=== PATIENT | male | born 1945 | race African-American/Black ===

== ENCOUNTER 2019-03-24 12:20 | Inpatient (IN) ==
[2019-03-24] MEDS ORDERED: SODIUM CHLORIDE 0.9% 1,000 ML IV STA ×2 (12:43→14:21)
[2019-03-24 13:50] LABS: Basophils # 0.1 10*3/uL (0.0-0.2); Basophils % 0.3 % (0.0-0.8); Hematocrit 36.5 VOL% (42.0-52.0); Immature Granulocytes % 1.3 %; Immature Granulocytes Absolute 0.26 #; Lymphocytes # 0.5 10*3/uL (1.4-4.0); Lymphocytes % 2.7 % (21.2-54.2); Mean Corpuscular HGB Conc 32.9 GM/DL (32-36); Mean Corpuscular Volume 94.1 FL (87-102); Mean Platelet Volume 9.8 FL (9.6-12.0); Monocytes % 3.7 % (1.7-12.7); Platelet Count 247 T/CUMM (130-400); Red Blood Count 3.88 MC/CUMM (3.8-5.5); Red Cell Distribution Width 14.6 % (9.3-17.3); White Blood Count 20.1 T/CUMM (4-12)
[2019-03-24 13:54] LABS: ABG Base Excess -11.4 MMOL/L (-2.5-2.5); ABG HCO3 12.1 MMOL/L (20-26); ABG Oxygen Saturation 97.1 % (95-100); ABG PCO2 22.3 MM HG (35-48); ABG PH 7.354 (7.35-7.45); ABG PO2 103.3 MM HG (80-95); ABG TCO2 12.8 MMOL/L (23-27); Allen Test Positive
[2019-03-24 13:59] LABS: Apearance,Urine CLEAR (Clear); Bacteria,Urine Occasional /HPF (Few); Bilirubin,Urine Negative (Negative); Blood, Urine Small mg/dL (Negative); Glucose,Urine (UA) >=500 mg/dL (Negative); Hyaline Casts,Urine 7 /LPF (0-3); Ketones,Urine 20 mg/dL (Negative); Mucus,Urine Occasional /LPF (Occasional); Nitrite,Urine Negative (Negative); Protein,Urine Negative; RBC,Urine 1 /HPF (0-4); Urine Color Yellow (Yellow); Urine Specific Gravity 1.015 (1.001-1.035); Urine Urobilinogen < 2.0 EU/DL (0.2-1.0); WBC,Urine 2 /HPF (0-6)
[2019-03-24] MEDS ORDERED: INSULIN REGULAR 100 UNIT/ML IV STA (14:21)
[2019-03-24 14:26] LABS: Albumin 2.4 G/DL (3.4-5.0); Bilirubin,Total 1.5 MG/DL (0.2-1.0); Calcium 8.7 MG/DL (8.5-10.1); Osmolality,Calculated 303.4 MOS/KG (273-304)
[2019-03-24] MEDS ORDERED: ACETAMINOPHEN 325 MG TABLET PO PRN (14:33)
[2019-03-24] MEDS ORDERED: traZODone 50 MG TABLET PO PRN (14:33)
[2019-03-24] MEDS ORDERED: ZALEPLON 5 MG CAPSULE PO PRN (14:33)
[2019-03-24] MEDS ORDERED: PROMETHAZINE 25 MG/1 ML VIAL IM PRN (14:33)
[2019-03-24] MEDS ORDERED: DEXTROSE 50% 25 GM/50 ML VIAL IV PRN (14:33)
[2019-03-24] MEDS ORDERED: ONDANSETRON 4 MG/2 ML VIAL IV PRN (14:33)
[2019-03-24] MEDS ORDERED: GLUCAGON 1 MG VIAL IM PRN (14:33)
[2019-03-24] MEDS ORDERED: SODIUM BICARB INJ 100 MEQ in STERILE WATER INJ 400 ML IV PRN (14:38)
[2019-03-24] MEDS ORDERED: MAGNESIUM SULF RIDER 2 GM in PREMIX 1 EACH IV PRN (14:38)
[2019-03-24] MEDS ORDERED: POTASSIUM CHLORIDE RIDER 10 MEQ in PREMIX 1 EACH IV PRN (14:38)
[2019-03-24] MEDS ORDERED: MAGNESIUM SULF RIDER 4 GM in PREMIX 1 EACH IV PRN (14:38)
[2019-03-24] MEDS ORDERED: SODIUM PHOSPHATE IV PRN (14:38)
[2019-03-24] MEDS ORDERED: SODIUM CHLORIDE 0.9% IV PRN (14:38)
[2019-03-24 14:56] LABS: Band Neutrophils 3 % (0-10); Lymphocytes 1 % (20-55); Segmented Neutrophils 94 % (50-85); Total Cells Counted 100
[2019-03-24 15:00] LABS: Hypochromasia 1+; Microcytosis 2+
[2019-03-24] MEDS ORDERED: SODIUM CHLORIDE 0.9% 1,000 ML IV SCH ×2 (15:00→19:39)
[2019-03-24 15:01] LABS: Burr Cells Few; Platelet Estimate Normal; Polychromasia Slight; Schistocytes Slight; Spherocytes 2+
[2019-03-24] MEDS: INSULIN REGULAR DRIP 100 ML IV SCH (16:25)
[2019-03-24] MEDS: ENOXAPARIN 40 MG/0.4 ML SYRINGE SUBCUT SCH (16:51)
[2019-03-24 18:28] LABS: Calcium 8.6 MG/DL (8.5-10.1); Osmolality,Calculated 302.9 MOS/KG (273-304)
[2019-03-24] MEDS: cefTRIAXone 1,000 MG in SYRINGE 1 EACH IV SCH (20:04)
[2019-03-24] MEDS: PANTOPRAZOLE 40 MG TABLET PO SCH (20:08)
[2019-03-24] MEDS ORDERED: INSULIN GLARGINE 100 UNIT/ML SUBCUT SCH (21:00)
[2019-03-24] MEDS ORDERED: VANCOMYCIN INJ 1,000 MG in SODIUM CHLORIDE 0.9% 250 ML IV ONE (22:14)
[2019-03-24] MEDS: ASPIRIN EC 81 MG TABLET PO SCH (22:55)
[2019-03-24] MEDS: SODIUM CHLORIDE 0.9% 1,000 ML IV SCH (22:56)
[2019-03-24 23:31] LABS: Calcium 8.3 MG/DL (8.5-10.1); Osmolality,Calculated 295.7 MOS/KG (273-304)
[2019-03-25] MEDS: CARVEDILOL 6.25 MG TABLET PO SCH ×3 (00:10→17:39)
[2019-03-25] MEDS: MAGNESIUM OXIDE 400 MG TABLET PO SCH ×3 (00:10→21:34)
[2019-03-25 00:40] LABS: Apearance,Urine CLEAR (Clear); Bacteria,Urine Occasional /HPF (Few); Bilirubin,Urine Negative (Negative); Blood, Urine Small mg/dL (Negative); Glucose,Urine (UA) >=500 mg/dL (Negative); Hyaline Casts,Urine 8 /LPF (0-3); Ketones,Urine 20 mg/dL (Negative); Mucus,Urine Occasional /LPF (Occasional); Nitrite,Urine Negative (Negative); Protein,Urine Negative; RBC,Urine 1 /HPF (0-4); Squamous Epithelial Cell,Urine Occasional /HPF (0-10); Urine Color Yellow (Yellow); Urine Specific Gravity 1.014 (1.001-1.035); Urine Urobilinogen < 2.0 EU/DL (0.2-1.0); WBC,Urine <1 /HPF (0-6)
[2019-03-25] MEDS: SODIUM CHLORIDE 0.9% 1,000 ML IV SCH ×4 (01:10→23:18)
[2019-03-25 02:03] LABS: Basophils % 0.2 % (0.0-0.8); Hematocrit 34.1 VOL% (42.0-52.0); Hemoglobin 11.7 GM/DL (14.0-18.0); Immature Granulocytes % 1.2 %; Immature Granulocytes Absolute 0.22 #; Lymphocytes # 0.6 10*3/uL (1.4-4.0); Mean Corpuscular HGB Conc 34.3 GM/DL (32-36); Mean Corpuscular Volume 90.9 FL (87-102); Mean Platelet Volume 9.6 FL (9.6-12.0); Monocytes % 4.7 % (1.7-12.7); Neutrophils % 90.9 % (38.7-73.9); Platelet Count 253 T/CUMM (130-400); Red Blood Count 3.75 MC/CUMM (3.8-5.5); Red Cell Distribution Width 14.1 % (9.3-17.3); White Blood Count 18.6 T/CUMM (4-12)
[2019-03-25 02:50] LABS: ABG Base Excess -0.1 MMOL/L (-2.5-2.5); ABG HCO3 24.3 MMOL/L (20-26); ABG Oxygen Saturation 95.2 % (95-100); ABG PCO2 31.2 MM HG (35-48); ABG PO2 74.6 MM HG (80-95); ABG TCO2 19.8 MMOL/L (23-27); Allen Test Positive; Pt O2 Delivery Device Other
[2019-03-25 02:53] LABS: Calcium 8.5 MG/DL (8.5-10.1); Osmolality,Calculated 296.1 MOS/KG (273-304)
[2019-03-25 03:33] LABS: Eosinophils 1 % (0-10); Lymphocytes 3 % (20-55); Platelet Estimate Adequate; Segmented Neutrophils 91 % (50-85); Total Cells Counted 100
[2019-03-25 04:57] LABS: Calcium 8.2 MG/DL (8.5-10.1); Osmolality,Calculated 294.2 MOS/KG (273-304); Risk Ratio 4.45; Thyroid Stimulating Hormone 0.776 uIU/ml (0.358-3.74); VLDL CHOLESTEROL 28.2 MG/DL
[2019-03-25] MEDS: INSULIN REGULAR DRIP 100 ML IV SCH (06:00)
[2019-03-25 07:07] LABS: Calcium 8.5 MG/DL (8.5-10.1); Osmolality,Calculated 296.7 MOS/KG (273-304)
[2019-03-25] MEDS ORDERED: POTASSIUM CHLORIDE 20 MEQ TABLET PO ONE (07:31)
[2019-03-25] MEDS ORDERED: SODIUM CHLORIDE 0.45% 1,000 ML IV SCH (07:39)
[2019-03-25] MEDS: INSULIN REGULAR 100 UNIT/ML SUBCUT SCH ×4 (09:44→21:30)
[2019-03-25] MEDS: sitaGLIPtin 25 MG TABLET PO SCH (10:04)
[2019-03-25] MEDS: ASPIRIN EC 81 MG TABLET PO SCH (10:06)
[2019-03-25] MEDS: PANTOPRAZOLE 40 MG TABLET PO SCH (10:06)
[2019-03-25 11:23] LABS: Calcium 8.4 MG/DL (8.5-10.1)
[2019-03-25] MEDS ORDERED: TUBERCULIN SKIN TEST 0.1 ML SYRINGE INTRADERM ONE (12:00)
[2019-03-25] MEDS: INSULIN GLARGINE 100 UNIT/ML SUBCUT SCH ×2 (12:22→21:31)
[2019-03-25] MEDS: INSULIN LISPRO 100 UNIT/ML SUBCUT SCH ×3 (12:22→21:31)
[2019-03-25] MEDS: FAMOTIDINE 20 MG/2 ML VIAL IV SCH (12:22)
[2019-03-25] MEDS: ENOXAPARIN 40 MG/0.4 ML SYRINGE SUBCUT SCH (17:39)
[2019-03-25] MEDS: cefTRIAXone 1,000 MG in SYRINGE 1 EACH IV SCH (17:40)
[2019-03-25] MEDS: ATORVASTATIN 10 MG TABLET PO SCH (21:35)
[2019-03-26] MEDS: FAMOTIDINE 20 MG/2 ML VIAL IV SCH ×3 (00:31→23:40)
[2019-03-26] MEDS: INSULIN REGULAR 100 UNIT/ML SUBCUT SCH ×6 (00:31→21:17)
[2019-03-26 05:19] LABS: Basophils % 0.1 % (0.0-0.8); Hematocrit 31.1 VOL% (42.0-52.0); Hemoglobin 10.6 GM/DL (14.0-18.0); Immature Granulocytes % 2.4 %; Immature Granulocytes Absolute 0.26 #; Lymphocytes # 0.6 10*3/uL (1.4-4.0); Lymphocytes % 5.6 % (21.2-54.2); Mean Corpuscular HGB Conc 34.1 GM/DL (32-36); Mean Corpuscular Volume 92.3 FL (87-102); Mean Platelet Volume 9.6 FL (9.6-12.0); NRBC # 0.02 10*3/uL; Neutrophils % 83.9 % (38.7-73.9); Platelet Count 276 T/CUMM (130-400); Red Blood Count 3.37 MC/CUMM (3.8-5.5); Red Cell Distribution Width 14.5 % (9.3-17.3); White Blood Count 10.9 T/CUMM (4-12)
[2019-03-26 05:41] LABS: Calcium 8.6 MG/DL (8.5-10.1); Osmolality,Calculated 295.1 MOS/KG (273-304)
[2019-03-26] MEDS: SODIUM CHLORIDE 0.9% 1,000 ML IV SCH ×2 (05:47→09:49)
[2019-03-26] MEDS: INSULIN GLARGINE 100 UNIT/ML SUBCUT SCH ×2 (08:06→21:17)
[2019-03-26] MEDS: INSULIN LISPRO 100 UNIT/ML SUBCUT SCH ×4 (08:07→21:17)
[2019-03-26] MEDS: ASPIRIN EC 81 MG TABLET PO SCH (08:10)
[2019-03-26] MEDS: CARVEDILOL 6.25 MG TABLET PO SCH ×2 (08:10→17:50)
[2019-03-26] MEDS: MAGNESIUM OXIDE 400 MG TABLET PO SCH ×2 (08:10→21:10)
[2019-03-26] MEDS: sitaGLIPtin 25 MG TABLET PO SCH (08:10)
[2019-03-26] MEDS: ENOXAPARIN 40 MG/0.4 ML SYRINGE SUBCUT SCH (14:44)
[2019-03-26] MEDS ORDERED: SKIN HEALING OINT (AQUAPHOR) 50 GM TUBE TOP PRN (15:09)
[2019-03-26] MEDS ORDERED: METOCLOPRAMIDE 10 MG/2 ML VIAL IV ONE (19:49)
[2019-03-26] MEDS: ATORVASTATIN 10 MG TABLET PO SCH (21:07)
[2019-03-27 05:58] LABS: Basophils % 0.1 % (0.0-0.8); Eosinophils % 0.1 % (0.00-10.9); Hematocrit 34.7 VOL% (42.0-52.0); Hemoglobin 11.3 GM/DL (14.0-18.0); Immature Granulocytes % 2.3 %; Immature Granulocytes Absolute 0.21 #; Lymphocytes % 10.5 % (21.2-54.2); Mean Corpuscular HGB Conc 32.6 GM/DL (32-36); Mean Corpuscular Volume 94.8 FL (87-102); Mean Platelet Volume 9.2 FL (9.6-12.0); Monocytes % 7.6 % (1.7-12.7); NRBC # 0.04 10*3/uL; Neutrophils % 79.4 % (38.7-73.9); Platelet Count 291 T/CUMM (130-400); Red Blood Count 3.66 MC/CUMM (3.8-5.5); Red Cell Distribution Width 14.9 % (9.3-17.3); White Blood Count 9.3 T/CUMM (4-12)
[2019-03-27 06:19] LABS: Calcium 8.6 MG/DL (8.5-10.1); Osmolality,Calculated 281.4 MOS/KG (273-304)
[2019-03-27] MEDS: MAGNESIUM OXIDE 400 MG TABLET PO SCH (08:35)
[2019-03-27] MEDS: ASPIRIN EC 81 MG TABLET PO SCH (08:35)
[2019-03-27] MEDS: CARVEDILOL 6.25 MG TABLET PO SCH (08:35)
[2019-03-27] MEDS: sitaGLIPtin 25 MG TABLET PO SCH (08:35)
[2019-03-27] MEDS: INSULIN LISPRO 100 UNIT/ML SUBCUT SCH ×3 (08:36→13:13)
[2019-03-27] MEDS ORDERED: INSULIN GLARGINE 100 UNIT/ML SUBCUT SCH (09:00)
[2019-03-27] MEDS ORDERED: AZITHROMYCIN 250 MG TABLET PO SCH (09:00)
[2019-03-27 11:10] VITALS: BP 91/52
[2019-03-27] MEDS: FAMOTIDINE 20 MG/2 ML VIAL IV SCH (13:13)
== END 2019-03-27 13:09 | DRG 637 ==
LOC: EDBD → EDUNIT# → N.ED 12:20 → N.EDINP 14:36 → N.CC 19:32 → N.3E 03-25 18:49
PROVIDERS: ADMIT Emergency Medicine; ATTEND Emergency Medicine

== ENCOUNTER 2021-02-15 09:42 | Inpatient (IN) ==
[2021-02-15 10:38] LABS: Albumin 2.9 G/DL (3.4-5.0); Bilirubin,Total 1.2 MG/DL (0.2-1.0); Calcium 8.7 MG/DL (8.5-10.1); Osmolality,Calculated 278.5 MOS/KG (273-304); Potassium 3.7 MMOL/L (3.5-5.1); Total Protein 7.1 G/DL (6.4-8.2)
[2021-02-15 10:57] LABS: Basophils % 0.3 % (0.0-0.8); Eosinophils % 0.3 % (0.00-10.9); Hematocrit 45.8 VOL% (42.0-52.0); Hemoglobin 15.1 GM/DL (14.0-18.0); Immature Granulocytes % 0.4 %; Immature Granulocytes Absolute 0.03 #; Lymphocytes # 0.7 10*3/uL (1.4-4.0); Lymphocytes % 10.2 % (21.2-54.2); Mean Corpuscular Volume 91.4 FL (87-102); Mean Platelet Volume 9.1 FL (9.6-12.0); Monocytes % 7.1 % (1.7-12.7); Neutrophils % 81.7 % (38.7-73.9); Platelet Count 196 T/CUMM (130-400); Red Blood Count 5.01 MC/CUMM (3.8-5.5); Red Cell Distribution Width 16.1 % (9.3-17.3); White Blood Count 7.2 T/CUMM (4-12)
[2021-02-15] MEDS ORDERED: hydrALAZINE 20 MG/1 ML VIAL IV STA (10:58)
[2021-02-15] MEDS ORDERED: MAGNESIUM SULF RIDER 2 GM in PREMIX 1 EACH IV STA (10:58)
[2021-02-15 11:05] LABS: Bilirubin,Urine Negative (Negative); Blood, Urine Small mg/dL (Negative); Glucose,Urine (UA) 50 mg/dL (Negative); Hyaline Casts,Urine 3 /LPF (0-3); Ketones,Urine Negative (Negative); Mucus,Urine Occasional /LPF (Occasional); Nitrite,Urine Negative (Negative); Protein,Urine >=500 MG/DL; RBC,Urine 8 /HPF (0-4); Squamous Epithelial Cell,Urine Occasional /HPF (0-10); Urine Appearance CLEAR (Clear); Urine Color Yellow (Yellow); Urine Specific Gravity 1.014 (1.001-1.035); Urine Urobilinogen < 2.0 EU/DL (0.2-1.0)
[2021-02-15] MEDS ORDERED: hydrALAZINE 20 MG/1 ML VIAL IV PRN (13:06)
[2021-02-15] MEDS ORDERED: ACETAMINOPHEN 325 MG TABLET PO PRN (13:06)
[2021-02-15] MEDS ORDERED: GLUCAGON 1 MG VIAL IM PRN (13:06)
[2021-02-15] MEDS ORDERED: ONDANSETRON 4 MG/2 ML VIAL IV PRN (13:06)
[2021-02-15] MEDS ORDERED: DEXTROSE 50% 25 GM/50 ML VIAL IV PRN (13:06)
[2021-02-15] MEDS ORDERED: DOCUSATE SODIUM 100 MG CAPSULE PO PRN (13:06)
[2021-02-15] MEDS: SODIUM CHLORIDE 0.9% 1,000 ML IV SCH ×2 (14:05→21:38)
[2021-02-15] MEDS: INSULIN REGULAR 100 UNIT/ML SUBCUT SCH ×2 (18:59→22:16)
[2021-02-15] MEDS ORDERED: INSULIN GLARGINE 100 UNIT/ML SUBCUT SCH (19:00)
[2021-02-15] MEDS ORDERED: ENOXAPARIN 40 MG/0.4 ML SYRINGE SUBCUT SCH (21:00)
[2021-02-15] MEDS: APIXABAN 5 MG TABLET PO SCH (21:31)
[2021-02-15] MEDS: MAGNESIUM OXIDE 400 MG TABLET PO SCH (21:32)
[2021-02-15] MEDS: carvediloL 6.25 MG TABLET PO SCH (21:32)
[2021-02-15] MEDS: ATORVASTATIN 10 MG TABLET PO SCH (21:33)
[2021-02-16 05:58] LABS: Basophils % 0.2 % (0.0-0.8); Eosinophils % 0.2 % (0.00-10.9); Hemoglobin 13.6 GM/DL (14.0-18.0); Immature Granulocytes % 0.3 %; Immature Granulocytes Absolute 0.02 #; Lymphocytes % 16.5 % (21.2-54.2); Mean Corpuscular HGB Conc 33.2 GM/DL (32-36); Mean Corpuscular Volume 92.8 FL (87-102); Mean Platelet Volume 9.9 FL (9.6-12.0); Monocytes % 9.3 % (1.7-12.7); Neutrophils % 73.5 % (38.7-73.9); Platelet Count 227 T/CUMM (130-400); Red Blood Count 4.42 MC/CUMM (3.8-5.5); Red Cell Distribution Width 16.4 % (9.3-17.3); White Blood Count 6.3 T/CUMM (4-12)
[2021-02-16] MEDS: SODIUM CHLORIDE 0.9% 1,000 ML IV SCH ×2 (06:12→18:34)
[2021-02-16 06:16] LABS: Calcium 8.3 MG/DL (8.5-10.1); Osmolality,Calculated 281.1 MOS/KG (273-304); Potassium 2.6 MMOL/L (3.5-5.1); Risk Ratio 2.67
[2021-02-16] MEDS ORDERED: POTASSIUM CHLORIDE 20 MEQ TABLET PO STA (08:08)
[2021-02-16] MEDS: INSULIN REGULAR 100 UNIT/ML SUBCUT SCH ×4 (08:46→23:16)
[2021-02-16] MEDS ORDERED: POTASSIUM CHLORIDE 8 MEQ CAPSULE PO SCH (09:00)
[2021-02-16] MEDS: MAGNESIUM OXIDE 400 MG TABLET PO SCH ×2 (09:25→22:18)
[2021-02-16] MEDS: ASPIRIN EC 81 MG TABLET PO SCH (09:25)
[2021-02-16] MEDS: APIXABAN 5 MG TABLET PO SCH ×2 (09:26→20:01)
[2021-02-16] MEDS: carvediloL 6.25 MG TABLET PO SCH ×2 (09:26→20:01)
[2021-02-16] MEDS: sitaGLIPtin 100 MG TABLET PO SCH (09:26)
[2021-02-16] MEDS: DOXAZOSIN 1 MG TABLET PO SCH (09:26)
[2021-02-16] MEDS: PANTOPRAZOLE 40 MG TABLET PO SCH (09:28)
[2021-02-16] MEDS ORDERED: POTASSIUM CHLORIDE 20 MEQ TABLET PO ONE (10:00)
[2021-02-16] MEDS ORDERED: INSULIN GLARGINE 100 UNIT/ML SUBCUT SCH (19:00)
[2021-02-16] MEDS: ATORVASTATIN 10 MG TABLET PO SCH (20:02)
[2021-02-16] MEDS: INSULIN GLARGINE 100 UNIT/ML SUBCUT SCH (23:18)
[2021-02-17] MEDS: INSULIN REGULAR 100 UNIT/ML SUBCUT SCH ×4 (08:17→21:27)
[2021-02-17 08:21] LABS: Basophils % 0.4 % (0.0-0.8); Eosinophils % 0.6 % (0.00-10.9); Hemoglobin 12.7 GM/DL (14.0-18.0); Immature Granulocytes % 0.6 %; Immature Granulocytes Absolute 0.03 #; Lymphocytes # 0.9 10*3/uL (1.4-4.0); Lymphocytes % 17.1 % (21.2-54.2); Mean Corpuscular HGB Conc 32.6 GM/DL (32-36); Mean Corpuscular Volume 92.6 FL (87-102); Mean Platelet Volume 9.6 FL (9.6-12.0); Monocytes % 8.8 % (1.7-12.7); Neutrophils % 72.5 % (38.7-73.9); Platelet Count 203 T/CUMM (130-400); Red Blood Count 4.21 MC/CUMM (3.8-5.5); Red Cell Distribution Width 16.5 % (9.3-17.3); White Blood Count 5.2 T/CUMM (4-12)
[2021-02-17 08:57] LABS: Calcium 8.1 MG/DL (8.5-10.1); Osmolality,Calculated 282.3 MOS/KG (273-304); Potassium 3.3 MMOL/L (3.5-5.1)
[2021-02-17] MEDS: carvediloL 6.25 MG TABLET PO SCH ×2 (10:23→20:46)
[2021-02-17] MEDS: PANTOPRAZOLE 40 MG TABLET PO SCH (10:23)
[2021-02-17] MEDS: ASPIRIN EC 81 MG TABLET PO SCH (10:23)
[2021-02-17] MEDS: sitaGLIPtin 100 MG TABLET PO SCH (10:24)
[2021-02-17] MEDS: MAGNESIUM OXIDE 400 MG TABLET PO SCH ×2 (10:24→20:46)
[2021-02-17] MEDS: DOXAZOSIN 1 MG TABLET PO SCH (10:25)
[2021-02-17] MEDS: APIXABAN 5 MG TABLET PO SCH ×2 (10:25→20:46)
[2021-02-17] MEDS: SODIUM CHLORIDE 0.9% 1,000 ML IV SCH (15:47)
[2021-02-17] MEDS ORDERED: TUBERCULIN SKIN TEST 0.1 ML SYRINGE INTRADERM ONE (20:00)
[2021-02-17] MEDS: ATORVASTATIN 10 MG TABLET PO SCH (20:46)
[2021-02-17] MEDS: INSULIN GLARGINE 100 UNIT/ML SUBCUT SCH (21:27)
[2021-02-18 05:06] LABS: Basophils % 0.2 % (0.0-0.8); Eosinophils # 0.1 10*3/uL (0.0-0.87); Eosinophils % 1.5 % (0.00-10.9); Hemoglobin 12.5 GM/DL (14.0-18.0); Immature Granulocytes % 0.2 %; Immature Granulocytes Absolute 0.01 #; Lymphocytes % 19.3 % (21.2-54.2); Mean Corpuscular HGB Conc 33.8 GM/DL (32-36); Mean Corpuscular Volume 90.7 FL (87-102); Mean Platelet Volume 9.8 FL (9.6-12.0); Monocytes % 9.1 % (1.7-12.7); Neutrophils % 69.7 % (38.7-73.9); Platelet Count 162 T/CUMM (130-400); Red Blood Count 4.08 MC/CUMM (3.8-5.5); Red Cell Distribution Width 16.4 % (9.3-17.3); White Blood Count 5.2 T/CUMM (4-12)
[2021-02-18 05:25] LABS: Calcium 7.7 MG/DL (8.5-10.1); Osmolality,Calculated 279.5 MOS/KG (273-304); Potassium 3.3 MMOL/L (3.5-5.1)
[2021-02-18] MEDS ORDERED: POTASSIUM CHLORIDE 20 MEQ TABLET PO ONE (07:35)
[2021-02-18] MEDS: INSULIN REGULAR 100 UNIT/ML SUBCUT SCH ×4 (08:37→20:50)
[2021-02-18] MEDS: ASPIRIN EC 81 MG TABLET PO SCH (09:45)
[2021-02-18] MEDS: DOXAZOSIN 1 MG TABLET PO SCH (09:45)
[2021-02-18] MEDS: carvediloL 6.25 MG TABLET PO SCH ×2 (09:45→20:50)
[2021-02-18] MEDS: APIXABAN 5 MG TABLET PO SCH ×2 (09:45→20:49)
[2021-02-18] MEDS: MAGNESIUM OXIDE 400 MG TABLET PO SCH ×2 (09:45→20:50)
[2021-02-18] MEDS: sitaGLIPtin 100 MG TABLET PO SCH (09:45)
[2021-02-18] MEDS: PANTOPRAZOLE 40 MG TABLET PO SCH (09:50)
[2021-02-18] MEDS: SODIUM CHLORIDE 0.9% 1,000 ML IV SCH (15:28)
[2021-02-18] MEDS: INSULIN GLARGINE 100 UNIT/ML SUBCUT SCH (19:35)
[2021-02-18] MEDS: ATORVASTATIN 10 MG TABLET PO SCH (20:50)
[2021-02-19 08:18] LABS: Basophils % 0.2 % (0.0-0.8); Eosinophils # 0.1 10*3/uL (0.0-0.87); Eosinophils % 1.2 % (0.00-10.9); Hematocrit 41.5 VOL% (42.0-52.0); Hemoglobin 13.7 GM/DL (14.0-18.0); Immature Granulocytes % 0.4 %; Immature Granulocytes Absolute 0.02 #; Lymphocytes % 18.2 % (21.2-54.2); Mean Corpuscular Volume 92.2 FL (87-102); Monocytes % 8.8 % (1.7-12.7); Neutrophils % 71.2 % (38.7-73.9); Platelet Count 210 T/CUMM (130-400); Red Cell Distribution Width 16.3 % (9.3-17.3); White Blood Count 5.7 T/CUMM (4-12)
[2021-02-19 08:29] LABS: Osmolality,Calculated 281.3 MOS/KG (273-304); Potassium 3.7 MMOL/L (3.5-5.1)
[2021-02-19] MEDS: INSULIN REGULAR 100 UNIT/ML SUBCUT SCH ×4 (08:43→21:03)
[2021-02-19] MEDS: APIXABAN 5 MG TABLET PO SCH ×2 (08:45→20:17)
[2021-02-19] MEDS: sitaGLIPtin 100 MG TABLET PO SCH (08:45)
[2021-02-19] MEDS: PANTOPRAZOLE 40 MG TABLET PO SCH (08:46)
[2021-02-19] MEDS: carvediloL 6.25 MG TABLET PO SCH ×2 (08:46→20:17)
[2021-02-19] MEDS: ASPIRIN EC 81 MG TABLET PO SCH (08:46)
[2021-02-19] MEDS: DOXAZOSIN 1 MG TABLET PO SCH (08:46)
[2021-02-19] MEDS: MAGNESIUM OXIDE 400 MG TABLET PO SCH ×2 (08:46→20:17)
[2021-02-19] MEDS: SODIUM CHLORIDE 0.9% 1,000 ML IV SCH (13:34)
[2021-02-19] MEDS: INSULIN GLARGINE 100 UNIT/ML SUBCUT SCH (18:40)
[2021-02-19] MEDS: ATORVASTATIN 10 MG TABLET PO SCH (20:17)
[2021-02-20 06:23] LABS: Basophils % 0.2 % (0.0-0.8); Eosinophils # 0.1 10*3/uL (0.0-0.87); Eosinophils % 1.3 % (0.00-10.9); Hematocrit 38.2 VOL% (42.0-52.0); Hemoglobin 12.7 GM/DL (14.0-18.0); Immature Granulocytes % 0.2 %; Immature Granulocytes Absolute 0.01 #; Lymphocytes # 0.8 10*3/uL (1.4-4.0); Lymphocytes % 16.6 % (21.2-54.2); Mean Corpuscular HGB Conc 33.2 GM/DL (32-36); Mean Corpuscular Volume 91.4 FL (87-102); Mean Platelet Volume 9.1 FL (9.6-12.0); Monocytes % 9.2 % (1.7-12.7); Neutrophils % 72.5 % (38.7-73.9); Platelet Count 175 T/CUMM (130-400); Red Blood Count 4.18 MC/CUMM (3.8-5.5); Red Cell Distribution Width 16.4 % (9.3-17.3); White Blood Count 4.6 T/CUMM (4-12)
[2021-02-20 06:46] LABS: Calcium 7.7 MG/DL (8.5-10.1)
[2021-02-20 06:51] LABS: Osmolality,Calculated 276.7 MOS/KG (273-304); Potassium 3.6 MMOL/L (3.5-5.1)
[2021-02-20] MEDS: INSULIN REGULAR 100 UNIT/ML SUBCUT SCH ×2 (07:46→12:59)
[2021-02-20] MEDS: sitaGLIPtin 100 MG TABLET PO SCH (09:33)
[2021-02-20] MEDS: MAGNESIUM OXIDE 400 MG TABLET PO SCH (09:33)
[2021-02-20] MEDS: carvediloL 6.25 MG TABLET PO SCH (09:34)
[2021-02-20] MEDS: APIXABAN 5 MG TABLET PO SCH (09:34)
[2021-02-20] MEDS: PANTOPRAZOLE 40 MG TABLET PO SCH (09:34)
[2021-02-20] MEDS: DOXAZOSIN 1 MG TABLET PO SCH (09:34)
[2021-02-20] MEDS: ASPIRIN EC 81 MG TABLET PO SCH (09:34)
[2021-02-20 11:30] VITALS: BP 144/72
== END 2021-02-20 13:30 | DRG 301 ==
LOC: EDUNIT# → EDBD → N.EDINP 09:42 → N.ED 09:42 → SUATTDRO 13:06 → N.4E 13:38 → SUATTDRO 02-16 17:54
PROVIDERS: ADMIT Internal Medicine; ATTEND Internal Medicine Geriatric Medicine

== ENCOUNTER 2021-09-06 14:24 | Inpatient (IN) ==
[2021-09-06 15:13] LABS: Basophils % 0.3 % (0.0-0.8); Hematocrit 34.8 VOL% (42.0-52.0); Hemoglobin 11.6 GM/DL (14.0-18.0); Immature Granulocytes % 0.5 %; Immature Granulocytes Absolute 0.02 #; Lymphocytes # 0.4 10*3/uL (1.4-4.0); Lymphocytes % 11.1 % (21.2-54.2); Mean Corpuscular HGB Conc 33.3 GM/DL (32-36); Mean Corpuscular Volume 89.2 FL (87-102); Mean Platelet Volume 12.3 FL (9.6-12.0); Monocytes % 4.2 % (1.7-12.7); NRBC # 0.06 10*3/uL; Neutrophils % 83.9 % (38.7-73.9); Platelet Count 105 T/CUMM (130-400); White Blood Count 3.8 T/CUMM (4-12)
[2021-09-06 15:19] LABS: INR 1.4; PT Patient Result 15.6 SECS (10.5-12.0)
[2021-09-06] MEDS ORDERED: FUROSEMIDE 40 MG/4 ML VIAL IV STA (15:40)
[2021-09-06] MEDS ORDERED: ONDANSETRON 4 MG/2 ML VIAL IV PRN (15:53)
[2021-09-06] MEDS ORDERED: ALBUTEROL 2.5 MG/3 ML NEB RESP TX PRN (15:53)
[2021-09-06] MEDS ORDERED: LIDOCAINE 1% 20 ML VIAL ONE (15:57)
[2021-09-06] MEDS ORDERED: HEPARIN/NACL 0.9% 2 UNITS/ML 1,000 UNIT/500 ML BAG IV ONE (15:57)
[2021-09-06] MEDS ORDERED: HYDROmorphone 2 MG/1 ML VIAL ONE (16:00)
[2021-09-06] MEDS ORDERED: MIDAZOLAM 2 MG/2 ML VIAL ONE (16:00)
[2021-09-06 16:03] LABS: Albumin 2.8 G/DL (3.4-5.0); Bilirubin,Total 0.5 MG/DL (0.20-1.00); Calcium 8.5 MG/DL (8.5-10.1); Osmolality,Calculated 304.4 MOS/KG (273-304); Thyroid Stimulating Hormone 6.12 uIU/ml (0.358-3.74); Total Protein 6.7 G/DL (6.4-8.2)
[2021-09-06 16:09] LABS: Potassium 6.4 MMOL/L (3.5-5.1)
[2021-09-06 16:11] LABS: Anisocytosis 1+; Burr Cells Few; Macrocytosis Slight; Platelet Estimate Adequate
[2021-09-06] MEDS ORDERED: diphenhydrAMINE 50 MG/1 ML VIAL ONE (16:11)
[2021-09-06] MEDS ORDERED: SODIUM POLYSTYRENE SULFATE 15 GM/60 ML BOTTLE PO STA (16:13)
[2021-09-06] MEDS ORDERED: AZITHROMYCIN INJ 500 MG in SODIUM CHLORIDE 0.9% 250 ML IV SCH (17:00)
[2021-09-06] MEDS ORDERED: INFLUENZA VIRUS VACCINE 0.5 ML SYRINGE IM ONE (18:04)
[2021-09-06] MEDS ORDERED: EPINEPHrine 1 MG/10 ML SYRINGE ONE (18:46)
[2021-09-06] MEDS ORDERED: CALCIUM CHLORIDE 1,000 MG/10 ML SYRINGE IV ONE ×2 (18:46)
[2021-09-06] MEDS: SODIUM CHLORIDE 0.9% 1,000 ML IV SCH ×2 (19:13→21:32)
[2021-09-06] MEDS ORDERED: SODIUM CHLORIDE 0.9% 1,000 ML IV ONE (19:14)
[2021-09-06 19:17] LABS: Basophils % 0.2 % (0.0-0.8); Hematocrit 37.5 VOL% (42.0-52.0); Hemoglobin 12.3 GM/DL (14.0-18.0); Immature Granulocytes % 0.6 %; Immature Granulocytes Absolute 0.03 #; Lymphocytes # 1.1 10*3/uL (1.4-4.0); Lymphocytes % 22.4 % (21.2-54.2); Mean Corpuscular HGB Conc 32.8 GM/DL (32-36); Mean Corpuscular Volume 89.9 FL (87-102); Mean Platelet Volume 11.3 FL (9.6-12.0); Monocytes % 4.4 % (1.7-12.7); NRBC # 0.05 10*3/uL; Neutrophils % 72.4 % (38.7-73.9); Platelet Count 97 T/CUMM (130-400); Red Blood Count 4.17 MC/CUMM (3.8-5.5); Red Cell Distribution Width 18.2 % (9.3-17.3)
[2021-09-06] MEDS: MIDAZOLAM 100 MG in SODIUM CHLORIDE 0.9% 80 ML IV PRN (19:20)
[2021-09-06 19:29] LABS: INR 1.4; PT Patient Result 15.7 SECS (10.5-12.0); Partial Thromboplastin Time 39.3 SECS (23.8-32.1)
[2021-09-06] MEDS ORDERED: DOPamine 800 MG/250 ML PREMIX IV ONE (19:30)
[2021-09-06] MEDS: DOPamine 800 MG/250 ML PREMIX IV PRN (19:32)
[2021-09-06] MEDS: INSULIN LISPRO 100 UNIT/ML SUBCUT SCH ×2 (19:44→23:55)
[2021-09-06 19:47] LABS: Alanine Aminotransferase 132 U/L (16-61); Alkaline Phosphatase 185 U/L (45-117); Aspartate Amino Transferase 42 U/L (0-37); Blood Urea Nitrogen 116 MG/DL (7-18); CKMB % 7.8 %; Calcium 10.8 MG/DL (8.5-10.1); Carbon Dioxide 25 MMOL/L (21-32); Estimated Glom Filtration Rate 20 ML/MIN; Glucose 163 MG/DL (74-106); Osmolality,Calculated 313.8 MOS/KG (273-304); Potassium 4.7 MMOL/L (3.5-5.1); Sodium 137 MMOL/L (136-145)
[2021-09-06 21:39] LABS: ABG Base Excess -3.6 MMOL/L (-2.5-2.5); ABG HCO3 21.4 MMOL/L (20-26); ABG Oxygen Saturation 99.3 % (95-100); ABG PCO2 31.1 MM HG (35-48); ABG PH 7.415 (7.35-7.45); ABG TCO2 17.6 MMOL/L (23-27)
[2021-09-07 04:26] LABS: ABG Base Excess -2.6 MMOL/L (-2.5-2.5); ABG HCO3 19.2 MMOL/L (20-26); ABG Oxygen Saturation 98.1 % (95-100); ABG PCO2 25.4 MM HG (35-48); ABG PH 7.496 (7.35-7.45); ABG PO2 105.5 MM HG (80-95)
[2021-09-07 04:34] LABS: Hematocrit 36.7 VOL% (42.0-52.0); Hemoglobin 12.4 GM/DL (14.0-18.0); Immature Granulocytes % 0.7 %; Immature Granulocytes Absolute 0.05 #; Lymphocytes # 0.2 10*3/uL (1.4-4.0); Lymphocytes % 3.2 % (21.2-54.2); Mean Corpuscular HGB Conc 33.8 GM/DL (32-36); Mean Corpuscular Volume 86.4 FL (87-102); NRBC # 0.04 10*3/uL; Neutrophils % 92.1 % (38.7-73.9); Platelet Count 114 T/CUMM (130-400); Red Blood Count 4.25 MC/CUMM (3.8-5.5); Red Cell Distribution Width 17.6 % (9.3-17.3); White Blood Count 7.5 T/CUMM (4-12)
[2021-09-07 04:49] LABS: Albumin 2.9 G/DL (3.4-5.0); Calcium 9.1 MG/DL (8.5-10.1); Osmolality,Calculated 310.2 MOS/KG (273-304); Potassium 4.7 MMOL/L (3.5-5.1); Risk Ratio 1.76; Total Protein 6.7 G/DL (6.4-8.2)
[2021-09-07 04:52] LABS: Hypochromasia 1+; Lymphocytes 4 % (20-55); Microcytosis 1+; Platelet Estimate Decreased; Segmented Neutrophils 95 % (50-85); Total Cells Counted 100
[2021-09-07 05:02] LABS: Folate 12.98 NG/ML (5.38-24.0); Vitamin B12 949 PG/ML (211-911)
[2021-09-07] MEDS: INSULIN LISPRO 100 UNIT/ML SUBCUT SCH ×4 (05:07→23:49)
[2021-09-07] MEDS: DOPamine 800 MG/250 ML PREMIX IV PRN ×2 (05:21→15:28)
[2021-09-07 05:40] LABS: Sedimentation Rate-Westergren 41 MM/HR (0-20)
[2021-09-07] MEDS: LEVOTHYROXINE 100 MCG VIAL IV SCH (05:59)
[2021-09-07] MEDS: SODIUM CHLORIDE 0.9% 1,000 ML IV SCH ×3 (08:36→18:46)
[2021-09-07] MEDS ORDERED: PANTOPRAZOLE 40 MG TABLET PO SCH (09:00)
[2021-09-07 09:02] LABS: Hemoglobin A1 (Alkaline) 98.1 % (96.5-98.5); Hemoglobin A2 (Alkaline) 1.9 % (1.5-3.5)
[2021-09-07] MEDS: AZITHROMYCIN INJ 250 MG in SODIUM CHLORIDE 0.9% 250 ML IV SCH (17:15)
[2021-09-07] MEDS: MIDAZOLAM 100 MG in SODIUM CHLORIDE 0.9% 80 ML IV PRN (18:42)
[2021-09-07] MEDS ORDERED: DEXTROSE 50% 25 GM/50 ML VIAL IV ONE (23:44)
[2021-09-07] MEDS ORDERED: DEXTROSE 50% 25 GM/50 ML VIAL IV PRN (23:48)
[2021-09-08] MEDS: DOPamine 800 MG/250 ML PREMIX IV PRN ×2 (01:29→14:00)
[2021-09-08 04:02] LABS: ABG Base Excess -2.2 MMOL/L (-2.5-2.5); ABG HCO3 20.2 MMOL/L (20-26); ABG Oxygen Saturation 99.8 % (95-100); ABG PH 7.475 (7.35-7.45); Basophils % 0.1 % (0.0-0.8); Hematocrit 36.7 VOL% (42.0-52.0); Hemoglobin 12.5 GM/DL (14.0-18.0); Immature Granulocytes % 0.8 %; Immature Granulocytes Absolute 0.08 #; Lymphocytes # 0.5 10*3/uL (1.4-4.0); Lymphocytes % 4.8 % (21.2-54.2); Mean Corpuscular HGB Conc 34.1 GM/DL (32-36); Mean Corpuscular Volume 88.2 FL (87-102); Mean Platelet Volume 11.1 FL (9.6-12.0); Monocytes % 7.1 % (1.7-12.7); Neutrophils % 87.2 % (38.7-73.9); Platelet Count 110 T/CUMM (130-400); Red Blood Count 4.16 MC/CUMM (3.8-5.5); Red Cell Distribution Width 18.5 % (9.3-17.3); White Blood Count 10.2 T/CUMM (4-12)
[2021-09-08 04:19] LABS: Calcium 8.2 MG/DL (8.5-10.1); Osmolality,Calculated 308.7 MOS/KG (273-304); Potassium 4.6 MMOL/L (3.5-5.1)
[2021-09-08 04:33] LABS: Band Neutrophils 6 % (0-10); Lymphocytes 5 % (20-55); Segmented Neutrophils 83 % (50-85); Total Cells Counted 100
[2021-09-08 04:34] LABS: Howell-Jolly Bodies Few; Platelet Estimate Decreased
[2021-09-08 04:36] LABS: Anisocytosis 1+; Hypochromasia 1+; Microcytosis 1+
[2021-09-08 04:44] LABS: % Iron Saturation 15.5 % (18-50)
[2021-09-08] MEDS: SODIUM CHLORIDE 0.9% 1,000 ML IV SCH ×2 (04:50→15:06)
[2021-09-08] MEDS: INSULIN LISPRO 100 UNIT/ML SUBCUT SCH ×3 (05:39→18:01)
[2021-09-08] MEDS: LEVOTHYROXINE 100 MCG VIAL IV SCH (06:04)
[2021-09-08] MEDS: PANTOPRAZOLE 40 MG VIAL IV SCH (09:14)
[2021-09-08 09:48] LABS: Amorphous Crystals,Urine Few /HPF (Few); Bacteria,Urine Occasional /HPF (Few); Bilirubin,Urine Negative (Negative); Blood, Urine Negative (Negative); Glucose,Urine (UA) Negative (Negative); Hyaline Casts,Urine 6 /LPF (0-3); Ketones,Urine Negative (Negative); Mucus,Urine Occasional /LPF (Occasional); Nitrite,Urine Negative (Negative); Protein,Urine 100 MG/DL; RBC,Urine 1 /HPF (0-4); Urine Appearance Slightly Hazy (Clear); Urine Color Amber (Yellow); Urine Specific Gravity 1.018 (1.001-1.035)
[2021-09-08] MEDS: HYDROCORTISONE 100 MG VIAL IV SCH ×2 (10:55→18:09)
[2021-09-08 13:03] VITALS: BP 126/58
[2021-09-08] MEDS: AZITHROMYCIN INJ 250 MG in SODIUM CHLORIDE 0.9% 250 ML IV SCH (17:09)
[2021-09-09] MEDS: INSULIN LISPRO 100 UNIT/ML SUBCUT SCH ×4 (00:33→17:08)
[2021-09-09] MEDS: HYDROCORTISONE 100 MG VIAL IV SCH ×3 (01:51→17:08)
[2021-09-09] MEDS: SODIUM CHLORIDE 0.9% 1,000 ML IV SCH ×2 (01:51→14:45)
[2021-09-09 05:05] LABS: Basophils % 0.1 % (0.0-0.8); Hematocrit 33.6 VOL% (42.0-52.0); Immature Granulocytes % 0.8 %; Immature Granulocytes Absolute 0.06 #; Lymphocytes # 0.2 10*3/uL (1.4-4.0); Lymphocytes % 3.1 % (21.2-54.2); Mean Corpuscular HGB Conc 32.7 GM/DL (32-36); Mean Corpuscular Volume 90.3 FL (87-102); Mean Platelet Volume 11.4 FL (9.6-12.0); Monocytes % 3.5 % (1.7-12.7); Neutrophils % 92.5 % (38.7-73.9); Platelet Count 80 T/CUMM (130-400); Red Blood Count 3.72 MC/CUMM (3.8-5.5); Red Cell Distribution Width 18.6 % (9.3-17.3); White Blood Count 7.7 T/CUMM (4-12)
[2021-09-09 05:12] LABS: ABG Base Excess -3.9 MMOL/L (-2.5-2.5); ABG HCO3 21.1 MMOL/L (20-26); ABG Oxygen Saturation 98.1 % (95-100); ABG PCO2 33.8 MM HG (35-48); ABG PH 7.387 (7.35-7.45); ABG TCO2 18.3 MMOL/L (23-27)
[2021-09-09 05:26] LABS: Lymphocytes 4 % (20-55); Nucleated Red Blood Cells 1 (0-5); Platelet Estimate Decreased; Segmented Neutrophils 93 % (50-85); Total Cells Counted 100
[2021-09-09 05:37] LABS: Calcium 7.9 MG/DL (8.5-10.1); Osmolality,Calculated 317.1 MOS/KG (273-304); Potassium 4.3 MMOL/L (3.5-5.1); Total Protein 5.5 G/DL (6.4-8.2)
[2021-09-09] MEDS: LEVOTHYROXINE 100 MCG VIAL IV SCH (06:01)
[2021-09-09] MEDS: PANTOPRAZOLE 40 MG VIAL IV SCH (08:59)
[2021-09-09 10:06] LABS: Ferritin 120.1 ng/mL (26-388)
[2021-09-09] MEDS: AZITHROMYCIN INJ 250 MG in SODIUM CHLORIDE 0.9% 250 ML IV SCH (17:09)
[2021-09-10] MEDS ORDERED: DEXTROSE 50% 25 GM/50 ML VIAL IV PRN (00:55)
[2021-09-10] MEDS ORDERED: GLUCAGON 1 MG VIAL IM PRN (00:55)
[2021-09-10] MEDS: INSULIN LISPRO 100 UNIT/ML SUBCUT SCH ×5 (00:57→18:06)
[2021-09-10] MEDS: HYDROCORTISONE 100 MG VIAL IV SCH ×3 (01:07→18:07)
[2021-09-10 03:32] LABS: ABG Base Excess -2.1 MMOL/L (-2.5-2.5); ABG HCO3 22.6 MMOL/L (20-26); ABG Oxygen Saturation 97.8 % (95-100); ABG PCO2 35.3 MM HG (35-48); ABG PH 7.405 (7.35-7.45)
[2021-09-10 03:36] LABS: Hematocrit 31.4 VOL% (42.0-52.0); Hemoglobin 10.2 GM/DL (14.0-18.0); Lymphocytes # 0.3 10*3/uL (1.4-4.0); Lymphocytes % 3.1 % (21.2-54.2); Mean Corpuscular HGB Conc 32.5 GM/DL (32-36); Mean Platelet Volume 10.7 FL (9.6-12.0); Monocytes % 6.1 % (1.7-12.7); Neutrophils % 89.8 % (38.7-73.9); Red Blood Count 3.45 MC/CUMM (3.8-5.5); Red Cell Distribution Width 18.4 % (9.3-17.3); White Blood Count 9.6 T/CUMM (4-12)
[2021-09-10] MEDS: SODIUM CHLORIDE 0.9% 1,000 ML IV SCH ×2 (03:37→12:07)
[2021-09-10 03:39] LABS: Platelet Count 84 T/CUMM (130-400)
[2021-09-10 03:59] LABS: Calcium 8.1 MG/DL (8.5-10.1); Osmolality,Calculated 319.1 MOS/KG (273-304)
[2021-09-10 04:07] LABS: Hypochromasia Slight; Lymphocytes 5 % (20-55); Microcytosis Slight; Nucleated Red Blood Cells 4 (0-5); Platelet Estimate Decreased; Segmented Neutrophils 86 % (50-85); Total Cells Counted 100
[2021-09-10 04:09] LABS: Ferritin 125.7 ng/mL (26-388)
[2021-09-10] MEDS: LEVOTHYROXINE 100 MCG VIAL IV SCH (06:23)
[2021-09-10] MEDS: PANTOPRAZOLE 40 MG VIAL IV SCH (08:12)
[2021-09-10] MEDS ORDERED: FUROSEMIDE 40 MG/4 ML VIAL IV ONE (08:41)
[2021-09-10] MEDS: AZITHROMYCIN INJ 250 MG in SODIUM CHLORIDE 0.9% 250 ML IV SCH (16:36)
[2021-09-10] MEDS ORDERED: BISACODYL 5 MG TABLET PO PRN (17:26)
[2021-09-10] MEDS: hydrALAZINE 20 MG/1 ML VIAL IV PRN (18:06)
[2021-09-10] MEDS: MAGNESIUM OXIDE 400 MG TABLET PO SCH (20:22)
[2021-09-10] MEDS ORDERED: FUROSEMIDE 100 MG/10 ML VIAL IV SCH (21:00)
[2021-09-11] MEDS: INSULIN LISPRO 100 UNIT/ML SUBCUT SCH ×5 (00:14→23:38)
[2021-09-11] MEDS: ALBUTEROL 2.5 MG/3 ML NEB RESP TX SCH ×4 (02:41→20:06)
[2021-09-11] MEDS: HYDROCORTISONE 100 MG VIAL IV SCH ×3 (03:34→17:37)
[2021-09-11 04:11] LABS: ABG Base Excess 1.5 MMOL/L (-2.5-2.5); ABG HCO3 25.2 MMOL/L (20-26); ABG Oxygen Saturation 95.9 % (95-100); ABG PCO2 36.5 MM HG (35-48); ABG PH 7.457 (7.35-7.45); ABG PO2 80.6 MM HG (80-95); ABG TCO2 26.3 MMOL/L (23-27)
[2021-09-11 04:18] LABS: Basophils % 0.2 % (0.0-0.8); Hemoglobin 11.5 GM/DL (14.0-18.0); Immature Granulocytes % 1.3 %; Immature Granulocytes Absolute 0.14 #; Lymphocytes # 0.5 10*3/uL (1.4-4.0); Lymphocytes % 4.7 % (21.2-54.2); Mean Corpuscular HGB Conc 31.9 GM/DL (32-36); Mean Corpuscular Volume 90.7 FL (87-102); Mean Platelet Volume 10.7 FL (9.6-12.0); Monocytes % 5.9 % (1.7-12.7); NRBC # 0.11 10*3/uL; Neutrophils % 87.9 % (38.7-73.9); Platelet Count 99 T/CUMM (130-400); Red Blood Count 3.97 MC/CUMM (3.8-5.5); Red Cell Distribution Width 18.2 % (9.3-17.3); White Blood Count 10.5 T/CUMM (4-12)
[2021-09-11 04:38] LABS: Band Neutrophils 1 % (0-10); Lymphocytes 5 % (20-55); Nucleated Red Blood Cells 1 (0-5); Platelet Estimate Decreased; Segmented Neutrophils 91 % (50-85); Total Cells Counted 100
[2021-09-11 04:39] LABS: Hypochromasia Slight; Microcytosis Slight
[2021-09-11 05:10] LABS: Calcium 9.2 MG/DL (8.5-10.1); Osmolality,Calculated 321.4 MOS/KG (273-304)
[2021-09-11 05:15] LABS: Ferritin 136.4 ng/mL (26-388)
[2021-09-11] MEDS ORDERED: POTASSIUM CHLORIDE RIDER 10 MEQ/100 ML PREMIX IV PRN (05:29)
[2021-09-11] MEDS ORDERED: POTASSIUM CHLORIDE RIDER 20 MEQ/100 ML PREMIX IV PRN (05:29)
[2021-09-11] MEDS: POTASSIUM BICARB EFFERVESCENT 20 MEQ TAB.EFF PER TUBE PRN ×5 (05:53→22:38)
[2021-09-11] MEDS: LEVOTHYROXINE 100 MCG VIAL IV SCH (05:54)
[2021-09-11] MEDS: PANTOPRAZOLE 40 MG VIAL IV SCH (08:43)
[2021-09-11] MEDS: MAGNESIUM OXIDE 400 MG TABLET PO SCH ×2 (08:43→20:37)
[2021-09-11] MEDS: DOXAZOSIN 1 MG TABLET PO SCH (08:43)
[2021-09-11] MEDS: hydrALAZINE 20 MG/1 ML VIAL IV PRN ×3 (09:16→21:37)
[2021-09-12] MEDS: ALBUTEROL 2.5 MG/3 ML NEB RESP TX SCH ×4 (00:39→19:20)
[2021-09-12] MEDS: POTASSIUM BICARB EFFERVESCENT 20 MEQ TAB.EFF PER TUBE PRN ×2 (00:40→05:48)
[2021-09-12] MEDS: HYDROCORTISONE 100 MG VIAL IV SCH ×4 (01:15→21:23)
[2021-09-12] MEDS: hydrALAZINE 20 MG/1 ML VIAL IV PRN ×4 (03:46→21:40)
[2021-09-12 04:02] LABS: ABG Base Excess 6.6 MMOL/L (-2.5-2.5); ABG HCO3 29.2 MMOL/L (20-26); ABG Oxygen Saturation 96.7 % (95-100); ABG PCO2 34.7 MM HG (35-48); ABG PH 7.543 (7.35-7.45); ABG TCO2 30.3 MMOL/L (23-27)
[2021-09-12 04:04] LABS: Basophils % 0.2 % (0.0-0.8); Hematocrit 35.8 VOL% (42.0-52.0); Hemoglobin 11.8 GM/DL (14.0-18.0); Lymphocytes # 0.3 10*3/uL (1.4-4.0); Lymphocytes % 2.8 % (21.2-54.2); Mean Corpuscular Volume 92.3 FL (87-102); Monocytes % 7.3 % (1.7-12.7); NRBC # 0.15 10*3/uL; Neutrophils % 88.7 % (38.7-73.9); Platelet Count 101 T/CUMM (130-400); Red Blood Count 3.88 MC/CUMM (3.8-5.5)
[2021-09-12 04:24] LABS: Lymphocytes 3 % (20-55); Platelet Estimate Decreased; Segmented Neutrophils 94 % (50-85); Total Cells Counted 100
[2021-09-12 04:38] LABS: Calcium 9.4 MG/DL (8.5-10.1); Osmolality,Calculated 321.3 MOS/KG (273-304); Potassium 3.3 MMOL/L (3.5-5.1)
[2021-09-12] MEDS: LEVOTHYROXINE 100 MCG VIAL IV SCH (05:48)
[2021-09-12] MEDS: INSULIN LISPRO 100 UNIT/ML SUBCUT SCH ×4 (05:48→23:36)
[2021-09-12] MEDS: PANTOPRAZOLE 40 MG VIAL IV SCH (08:49)
[2021-09-12] MEDS: MAGNESIUM OXIDE 400 MG TABLET PO SCH ×2 (08:49→21:10)
[2021-09-12] MEDS: DOXAZOSIN 1 MG TABLET PO SCH (08:49)
[2021-09-12] MEDS: APIXABAN 5 MG TABLET PO SCH (21:10)
[2021-09-13] MEDS ORDERED: hydrALAZINE 20 MG/1 ML VIAL IV ONE (00:09)
[2021-09-13] MEDS: ALBUTEROL 2.5 MG/3 ML NEB RESP TX SCH ×4 (01:14→18:51)
[2021-09-13 03:44] LABS: Basophils % 0.1 % (0.0-0.8); Hemoglobin 11.4 GM/DL (14.0-18.0); Immature Granulocytes % 0.8 %; Immature Granulocytes Absolute 0.07 #; Lymphocytes # 0.3 10*3/uL (1.4-4.0); Lymphocytes % 3.6 % (21.2-54.2); Mean Corpuscular HGB Conc 31.7 GM/DL (32-36); Mean Platelet Volume 12.2 FL (9.6-12.0); Monocytes % 6.7 % (1.7-12.7); NRBC # 0.17 10*3/uL; Neutrophils % 88.8 % (38.7-73.9); Platelet Count 129 T/CUMM (130-400); Red Blood Count 3.87 MC/CUMM (3.8-5.5); Red Cell Distribution Width 18.3 % (9.3-17.3); White Blood Count 8.9 T/CUMM (4-12)
[2021-09-13 04:03] LABS: Albumin 2.4 G/DL (3.4-5.0); Calcium 9.2 MG/DL (8.5-10.1); Osmolality,Calculated 320.9 MOS/KG (273-304); Potassium 3.5 MMOL/L (3.5-5.1)
[2021-09-13 04:16] LABS: Calcium 8.8 MG/DL (8.5-10.1); Osmolality,Calculated 323.6 MOS/KG (273-304); Potassium 3.7 MMOL/L (3.5-5.1)
[2021-09-13 04:19] LABS: Hypochromasia Slight; Lymphocytes 1 % (20-55); Microcytosis Slight; Platelet Estimate Normal; Segmented Neutrophils 95 % (50-85); Total Cells Counted 100
[2021-09-13] MEDS: LEVOTHYROXINE 100 MCG VIAL IV SCH (05:47)
[2021-09-13] MEDS: INSULIN LISPRO 100 UNIT/ML SUBCUT SCH ×4 (05:51→20:40)
[2021-09-13] MEDS: DOXAZOSIN 1 MG TABLET PO SCH (09:00)
[2021-09-13] MEDS: MAGNESIUM OXIDE 400 MG TABLET PO SCH ×2 (09:00→20:40)
[2021-09-13] MEDS: PANTOPRAZOLE 40 MG VIAL IV SCH (09:00)
[2021-09-13] MEDS: APIXABAN 5 MG TABLET PO SCH ×2 (09:00→20:40)
[2021-09-13] MEDS: HYDROCORTISONE 100 MG VIAL IV SCH (09:08)
[2021-09-13] MEDS ORDERED: metOLazone 5 MG TABLET PO ONE (10:16)
[2021-09-14] MEDS: ALBUTEROL 2.5 MG/3 ML NEB RESP TX SCH ×4 (01:00→13:00)
[2021-09-14 04:46] LABS: Eosinophils % 0.1 % (0.00-10.9); Hemoglobin 10.6 GM/DL (14.0-18.0); Immature Granulocytes % 0.4 %; Immature Granulocytes Absolute 0.03 #; Lymphocytes # 0.6 10*3/uL (1.4-4.0); Lymphocytes % 8.2 % (21.2-54.2); Mean Corpuscular HGB Conc 31.2 GM/DL (32-36); Mean Platelet Volume 10.9 FL (9.6-12.0); Monocytes % 9.9 % (1.7-12.7); NRBC # 0.07 10*3/uL; Neutrophils % 81.4 % (38.7-73.9); Platelet Count 133 T/CUMM (130-400); Red Blood Count 3.54 MC/CUMM (3.8-5.5); Red Cell Distribution Width 18.6 % (9.3-17.3); White Blood Count 7.3 T/CUMM (4-12)
[2021-09-14 05:03] LABS: Osmolality,Calculated 319.7 MOS/KG (273-304); Potassium 3.5 MMOL/L (3.5-5.1)
[2021-09-14] MEDS ORDERED: LEVOTHYROXINE 75 MCG TABLET PO SCH (06:30)
[2021-09-14] MEDS: INSULIN LISPRO 100 UNIT/ML SUBCUT SCH ×2 (08:32→11:53)
[2021-09-14] MEDS: HYDROCORTISONE 100 MG VIAL IV SCH (08:32)
[2021-09-14] MEDS: PANTOPRAZOLE 40 MG VIAL IV SCH (08:32)
[2021-09-14] MEDS: MAGNESIUM OXIDE 400 MG TABLET PO SCH (08:33)
[2021-09-14] MEDS: APIXABAN 5 MG TABLET PO SCH (08:33)
[2021-09-14] MEDS: DOXAZOSIN 1 MG TABLET PO SCH (08:33)
== END 2021-09-14 16:00 | DRG 260 ==
LOC: EDUNIT# → EDBD → N.ED 14:24 → N.EDINP 15:53 → SUATTDRO 15:53 → N.EDINP 15:56 → N.CC 17:49
PROVIDERS: ADMIT Internal Medicine; ATTEND Internal Medicine

== ENCOUNTER 2021-09-23 12:44 | Inpatient (IN) ==
[2021-09-23 14:02] LABS: Hematocrit 36.1 VOL% (42.0-52.0); Hemoglobin 11.3 GM/DL (14.0-18.0); Immature Granulocytes % 0.4 %; Immature Granulocytes Absolute 0.01 #; Lymphocytes # 0.2 10*3/uL (1.4-4.0); Lymphocytes % 8.6 % (21.2-54.2); Mean Corpuscular HGB Conc 31.3 GM/DL (32-36); Mean Platelet Volume 10.1 FL (9.6-12.0); Platelet Count 164 T/CUMM (130-400); Red Blood Count 3.84 MC/CUMM (3.8-5.5); White Blood Count 2.7 T/CUMM (4-12)
[2021-09-23 14:04] LABS: Barbiturates Screen,Urine Negative (Negative); Benzodiazepines Screen,Urine Negative (Negative); Cannabinoid Screen,Urine Negative (Negative); Opiate Screen,Urine Negative (Negative); Phencyclidine Screen,Urine Negative (Negative)
[2021-09-23 14:23] LABS: Band Neutrophils 2 % (0-10); Lymphocytes 7 % (20-55); Segmented Neutrophils 89 % (50-85); Total Cells Counted 100
[2021-09-23 14:24] LABS: Anisocytosis 1+; Helmet Cells 1+; Macrocytosis 1+; Microcytosis 1+; Platelet Estimate Normal; Poikilocytosis 1+
[2021-09-23 14:25] LABS: Target Cells Few
[2021-09-23 14:39] LABS: Albumin 2.4 G/DL (3.4-5.0); Bilirubin,Total 0.7 MG/DL (0.20-1.00); Calcium 8.5 MG/DL (8.5-10.1); Osmolality,Calculated 324.4 MOS/KG (273-304); Potassium 3.2 MMOL/L (3.5-5.1); Thyroid Stimulating Hormone 0.657 uIU/ml (0.358-3.74); Total Protein 5.9 G/DL (6.4-8.2)
[2021-09-23] MEDS ORDERED: INSULIN LISPRO 100 UNIT/ML SUBCUT STA (15:22)
[2021-09-23] MEDS ORDERED: ONDANSETRON 4 MG/2 ML VIAL IV PRN (16:14)
[2021-09-23] MEDS ORDERED: DEXTROSE 50% 25 GM/50 ML SYRINGE IV PRN (16:14)
[2021-09-23] MEDS ORDERED: diphenhydrAMINE CAP 25 MG CAPSULE PO PRN (16:14)
[2021-09-23] MEDS ORDERED: GLUCAGON 1 MG VIAL IM PRN ×2 (16:14)
[2021-09-23] MEDS ORDERED: NICOTINE 21 MG/24 HR PATCH TRANSDERM PRN (16:14)
[2021-09-23] MEDS ORDERED: guaiFENesin/DM ER 600-30 MG TABLET PO PRN (16:14)
[2021-09-23] MEDS ORDERED: DEXTROSE 50% 25 GM/50 ML VIAL IV PRN (16:14)
[2021-09-23] MEDS ORDERED: ACETAMINOPHEN 325 MG TABLET PO PRN (16:14)
[2021-09-23] MEDS ORDERED: ZALEPLON 5 MG CAPSULE PO PRN (16:14)
[2021-09-23 18:19] VITALS: BP 95/56
[2021-09-23] MEDS ORDERED: SODIUM CHLORIDE 0.9% 1,000 ML IV ONE (19:40)
[2021-09-23] MEDS ORDERED: PIPERACILLIN/TAZOBACTAM 3,375 MG in SODIUM CHLORIDE 0.9% 100 ML IV ONE (19:41)
[2021-09-23] MEDS ORDERED: DOPamine 800 MG/250 ML PREMIX IV PRN (20:01)
[2021-09-23 20:08] LABS: ABG HCO3 28.9 MMOL/L (20-26); ABG Oxygen Saturation 98.8 % (95-100); ABG PCO2 54.1 MM HG (35-48); ABG PH 7.374 (7.35-7.45); ABG TCO2 28.2 MMOL/L (23-27)
[2021-09-23] MEDS: ALBUTEROL 2.5 MG/3 ML NEB RESP TX SCH ×2 (20:15→23:15)
[2021-09-23 20:20] LABS: Eosinophils % 0.4 % (0.00-10.9); Hematocrit 38.2 VOL% (42.0-52.0); Hemoglobin 11.8 GM/DL (14.0-18.0); Immature Granulocytes % 0.7 %; Immature Granulocytes Absolute 0.02 #; Lymphocytes # 0.2 10*3/uL (1.4-4.0); Lymphocytes % 8.3 % (21.2-54.2); Mean Corpuscular HGB Conc 30.9 GM/DL (32-36); Mean Corpuscular Volume 95.3 FL (87-102); Mean Platelet Volume 10.2 FL (9.6-12.0); Monocytes % 3.3 % (1.7-12.7); Neutrophils % 87.3 % (38.7-73.9); Platelet Count 171 T/CUMM (130-400); Red Blood Count 4.01 MC/CUMM (3.8-5.5); Red Cell Distribution Width 17.1 % (9.3-17.3); White Blood Count 2.8 T/CUMM (4-12)
[2021-09-23] MEDS: POTASSIUM CHLORIDE RIDER 10 MEQ/100 ML PREMIX IV PRN ×4 (20:30→23:28)
[2021-09-23] MEDS: INSULIN LISPRO 100 UNIT/ML SUBCUT SCH ×2 (20:30→22:42)
[2021-09-23] MEDS: HEPARIN 5,000 UNIT/1 ML VIAL SUBCUT SCH (20:31)
[2021-09-23] MEDS: HYDROCORTISONE 100 MG VIAL IV SCH (20:33)
[2021-09-23 20:54] LABS: Albumin 2.5 G/DL (3.4-5.0); Bilirubin,Total 0.6 MG/DL (0.20-1.00); Calcium 9.3 MG/DL (8.5-10.1); Osmolality,Calculated 311.6 MOS/KG (273-304); Potassium 2.9 MMOL/L (3.5-5.1); Total Protein 6.6 G/DL (6.4-8.2)
[2021-09-23] MEDS ORDERED: VANCOMYCIN INJ 1,500 MG in SODIUM CHLORIDE 0.9% 500 ML IV ONE (21:00)
[2021-09-23] MEDS ORDERED: INSULIN GLARGINE 100 UNIT/ML SUBCUT SCH (21:00)
[2021-09-23] MEDS ORDERED: SODIUM CHLORIDE 0.9% 2,000 ML IV ONE (22:05)
[2021-09-23 22:36] LABS: Bilirubin,Urine Negative (Negative); Blood, Urine Large mg/dL (Negative); Glucose,Urine (UA) >=500 mg/dL (Negative); Ketones,Urine Negative (Negative); Mucus,Urine Occasional /LPF (Occasional); Nitrite,Urine Negative (Negative); Protein,Urine 100 MG/DL; RBC,Urine 27 /HPF (0-4); Urine Appearance Slightly Hazy (Clear); Urine Color Yellow (Yellow); Urine Specific Gravity 1.013 (1.001-1.035); Urine Urobilinogen < 2.0 EU/DL (0.2-1.0)
[2021-09-23] MEDS: DOCUSATE SODIUM 100 MG CAPSULE PO SCH (22:41)
[2021-09-24] MEDS: POTASSIUM CHLORIDE RIDER 10 MEQ/100 ML PREMIX IV PRN ×2 (00:30→04:11)
[2021-09-24] MEDS: HYDROCORTISONE 100 MG VIAL IV SCH ×3 (02:23→15:35)
[2021-09-24] MEDS: ALBUTEROL 2.5 MG/3 ML NEB RESP TX SCH ×4 (03:05→20:20)
[2021-09-24 03:20] LABS: Basophils % 0.3 % (0.0-0.8); Hematocrit 35.5 VOL% (42.0-52.0); Immature Granulocytes % 0.3 %; Immature Granulocytes Absolute 0.01 #; Lymphocytes # 0.1 10*3/uL (1.4-4.0); Lymphocytes % 3.3 % (21.2-54.2); Mean Corpuscular Volume 92.9 FL (87-102); Mean Platelet Volume 9.8 FL (9.6-12.0); Monocytes % 4.4 % (1.7-12.7); Neutrophils % 91.7 % (38.7-73.9); Platelet Count 176 T/CUMM (130-400); Red Blood Count 3.82 MC/CUMM (3.8-5.5); Red Cell Distribution Width 17.2 % (9.3-17.3); White Blood Count 3.6 T/CUMM (4-12)
[2021-09-24 03:41] LABS: Calcium 8.5 MG/DL (8.5-10.1); Osmolality,Calculated 299.7 MOS/KG (273-304); Potassium 3.9 MMOL/L (3.5-5.1)
[2021-09-24 03:51] LABS: Band Neutrophils 2 % (0-10); Hypochromasia 1+; Lymphocytes 1 % (20-55); Segmented Neutrophils 92 % (50-85); Total Cells Counted 100
[2021-09-24 03:53] LABS: Microcytosis 1+; Ovalocytes Slight; Platelet Estimate Adequate
[2021-09-24] MEDS ORDERED: MAGNESIUM SULF RIDER 4 GM/100 ML PREMIX IV PRN (04:03)
[2021-09-24] MEDS ORDERED: MAGNESIUM SULF RIDER 2 GM/50 ML PREMIX IV PRN (04:03)
[2021-09-24] MEDS: HEPARIN 5,000 UNIT/1 ML VIAL SUBCUT SCH (06:38)
[2021-09-24] MEDS: INSULIN LISPRO 100 UNIT/ML SUBCUT SCH ×4 (08:29→20:36)
[2021-09-24 08:43] LABS: Thyroid Stimulating Hormone 0.546 uIU/ml (0.358-3.74)
[2021-09-24] MEDS ORDERED: PANTOPRAZOLE 40 MG TABLET PO SCH (09:00)
[2021-09-24] MEDS: DEXTROSE 5% NACL 0.45% 1,000 ML IV SCH ×2 (10:13→23:54)
[2021-09-24] MEDS: DOCUSATE SODIUM 100 MG CAPSULE PO SCH ×2 (10:24→20:36)
[2021-09-24] MEDS: APIXABAN 5 MG TABLET PO SCH ×2 (10:24→20:36)
[2021-09-24] MEDS ORDERED: HYDROCORTISONE 100 MG VIAL IV SCH (15:30)
[2021-09-25] MEDS: ALBUTEROL 2.5 MG/3 ML NEB RESP TX SCH ×4 (01:00→19:24)
[2021-09-25 04:44] LABS: Hemoglobin 9.6 GM/DL (14.0-18.0); Immature Granulocytes % 0.6 %; Immature Granulocytes Absolute 0.03 #; Lymphocytes # 0.5 10*3/uL (1.4-4.0); Lymphocytes % 9.5 % (21.2-54.2); Mean Corpuscular Volume 95.1 FL (87-102); Mean Platelet Volume 10.9 FL (9.6-12.0); Monocytes % 5.4 % (1.7-12.7); NRBC # 0.05 10*3/uL; Neutrophils % 84.5 % (38.7-73.9); Platelet Count 137 T/CUMM (130-400); Red Blood Count 3.26 MC/CUMM (3.8-5.5)
[2021-09-25 04:56] LABS: Calcium 7.9 MG/DL (8.5-10.1); Potassium 3.5 MMOL/L (3.5-5.1)
[2021-09-25 05:06] LABS: Band Neutrophils 2 % (0-10); Hypochromasia 1+; Lymphocytes 3 % (20-55); Microcytosis 1+; Nucleated Red Blood Cells 1 (0-5); Platelet Estimate Adequate; Segmented Neutrophils 93 % (50-85); Target Cells Slight; Total Cells Counted 100
[2021-09-25] MEDS: POTASSIUM CHLORIDE RIDER 10 MEQ/100 ML PREMIX IV PRN ×2 (06:07→08:57)
[2021-09-25] MEDS: DOCUSATE SODIUM 100 MG CAPSULE PO SCH ×2 (08:05→21:28)
[2021-09-25] MEDS: INSULIN LISPRO 100 UNIT/ML SUBCUT SCH ×4 (08:57→21:28)
[2021-09-25] MEDS: APIXABAN 5 MG TABLET PO SCH ×2 (08:57→21:24)
[2021-09-25] MEDS: PIPERACILLIN/TAZOBACTAM 3,375 MG in SODIUM CHLORIDE 0.9% 100 ML IV SCH ×2 (10:03→17:28)
[2021-09-25] MEDS: HYDROCORTISONE 100 MG VIAL IV SCH ×2 (10:56→17:28)
[2021-09-25] MEDS: ZINC OXIDE PASTE 113 GM TUBE TOP SCH ×2 (13:30→21:28)
[2021-09-25] MEDS: DEXTROSE 5% NACL 0.45% 1,000 ML IV SCH (16:27)
[2021-09-25] MEDS: ATORVASTATIN 10 MG TABLET PO SCH (21:24)
[2021-09-25] MEDS: hydrALAZINE 20 MG/1 ML VIAL IV PRN (23:05)
[2021-09-26] MEDS: ALBUTEROL 2.5 MG/3 ML NEB RESP TX SCH ×4 (01:13→23:00)
[2021-09-26] MEDS: PIPERACILLIN/TAZOBACTAM 3,375 MG in SODIUM CHLORIDE 0.9% 100 ML IV SCH ×3 (03:13→17:55)
[2021-09-26] MEDS: HYDROCORTISONE 100 MG VIAL IV SCH ×3 (03:13→17:53)
[2021-09-26 05:04] LABS: Basophils % 0.2 % (0.0-0.8); Eosinophils % 0.2 % (0.00-10.9); Hematocrit 30.5 VOL% (42.0-52.0); Hemoglobin 9.5 GM/DL (14.0-18.0); Immature Granulocytes Absolute 0.05 #; Lymphocytes # 0.5 10*3/uL (1.4-4.0); Mean Corpuscular HGB Conc 31.1 GM/DL (32-36); Mean Platelet Volume 10.9 FL (9.6-12.0); Monocytes % 5.6 % (1.7-12.7); NRBC # 0.02 10*3/uL; Platelet Count 157 T/CUMM (130-400); Red Blood Count 3.21 MC/CUMM (3.8-5.5); Red Cell Distribution Width 18.1 % (9.3-17.3); White Blood Count 5.2 T/CUMM (4-12)
[2021-09-26 05:21] LABS: Calcium 8.1 MG/DL (8.5-10.1); Osmolality,Calculated 306.4 MOS/KG (273-304); Potassium 3.3 MMOL/L (3.5-5.1)
[2021-09-26] MEDS: POTASSIUM CHLORIDE RIDER 10 MEQ/100 ML PREMIX IV PRN ×3 (06:19→09:19)
[2021-09-26] MEDS: APIXABAN 5 MG TABLET PO SCH ×2 (08:13→20:57)
[2021-09-26] MEDS: ZINC OXIDE PASTE 113 GM TUBE TOP SCH ×2 (08:13→20:58)
[2021-09-26] MEDS: INSULIN LISPRO 100 UNIT/ML SUBCUT SCH ×4 (08:13→20:58)
[2021-09-26] MEDS: DOCUSATE SODIUM 100 MG CAPSULE PO SCH ×2 (08:51→20:57)
[2021-09-26] MEDS: DEXTROSE 5% NACL 0.45% 1,000 ML IV SCH (13:05)
[2021-09-26] MEDS: SODIUM CHLORIDE 0.45% 1,000 ML IV SCH (13:05)
[2021-09-26] MEDS: ATORVASTATIN 10 MG TABLET PO SCH (20:57)
[2021-09-27] MEDS: ALBUTEROL 2.5 MG/3 ML NEB RESP TX SCH ×5 (00:30→23:17)
[2021-09-27] MEDS: HYDROCORTISONE 100 MG VIAL IV SCH ×3 (03:23→17:38)
[2021-09-27] MEDS: PIPERACILLIN/TAZOBACTAM 3,375 MG in SODIUM CHLORIDE 0.9% 100 ML IV SCH ×3 (03:23→17:40)
[2021-09-27] MEDS: hydrALAZINE 20 MG/1 ML VIAL IV PRN (04:41)
[2021-09-27 04:45] LABS: Eosinophils % 0.2 % (0.00-10.9); Hematocrit 31.9 VOL% (42.0-52.0); Hemoglobin 9.9 GM/DL (14.0-18.0); Immature Granulocytes % 1.6 %; Immature Granulocytes Absolute 0.09 #; Lymphocytes # 0.5 10*3/uL (1.4-4.0); Lymphocytes % 9.6 % (21.2-54.2); Mean Corpuscular Volume 95.2 FL (87-102); Mean Platelet Volume 9.8 FL (9.6-12.0); Monocytes % 5.7 % (1.7-12.7); NRBC # 0.02 10*3/uL; Neutrophils % 82.9 % (38.7-73.9); Platelet Count 143 T/CUMM (130-400); Red Blood Count 3.35 MC/CUMM (3.8-5.5); Red Cell Distribution Width 17.9 % (9.3-17.3); White Blood Count 5.6 T/CUMM (4-12)
[2021-09-27 04:58] LABS: Calcium 8.4 MG/DL (8.5-10.1); Potassium 3.7 MMOL/L (3.5-5.1)
[2021-09-27] MEDS: POTASSIUM CHLORIDE RIDER 10 MEQ/100 ML PREMIX IV PRN ×2 (06:16→13:50)
[2021-09-27] MEDS: INSULIN LISPRO 100 UNIT/ML SUBCUT SCH ×4 (08:45→21:22)
[2021-09-27] MEDS: DOCUSATE SODIUM 100 MG CAPSULE PO SCH ×3 (09:14→21:22)
[2021-09-27] MEDS: ZINC OXIDE PASTE 113 GM TUBE TOP SCH ×2 (09:14→21:22)
[2021-09-27] MEDS: APIXABAN 5 MG TABLET PO SCH ×3 (09:15→21:22)
[2021-09-27] MEDS: SODIUM CHLORIDE 0.45% 1,000 ML IV SCH (09:17)
[2021-09-27] MEDS: DEXTROSE 5% 1,000 ML IV SCH (14:46)
[2021-09-27] MEDS: ATORVASTATIN 10 MG TABLET PO SCH (21:22)
[2021-09-28] MEDS: HYDROCORTISONE 100 MG VIAL IV SCH ×2 (03:11→09:05)
[2021-09-28] MEDS: PIPERACILLIN/TAZOBACTAM 3,375 MG in SODIUM CHLORIDE 0.9% 100 ML IV SCH ×2 (03:11→09:07)
[2021-09-28 05:59] LABS: Eosinophils % 0.2 % (0.00-10.9); Hematocrit 32.8 VOL% (42.0-52.0); Hemoglobin 10.2 GM/DL (14.0-18.0); Immature Granulocytes % 1.2 %; Immature Granulocytes Absolute 0.06 #; Lymphocytes # 0.5 10*3/uL (1.4-4.0); Lymphocytes % 10.3 % (21.2-54.2); Mean Corpuscular HGB Conc 31.1 GM/DL (32-36); Mean Corpuscular Volume 94.5 FL (87-102); Mean Platelet Volume 10.4 FL (9.6-12.0); Monocytes % 4.7 % (1.7-12.7); NRBC # 0.04 10*3/uL; Neutrophils % 83.6 % (38.7-73.9); Platelet Count 137 T/CUMM (130-400); Red Blood Count 3.47 MC/CUMM (3.8-5.5); Red Cell Distribution Width 17.8 % (9.3-17.3); White Blood Count 4.9 T/CUMM (4-12)
[2021-09-28 06:11] LABS: Calcium 8.3 MG/DL (8.5-10.1); Osmolality,Calculated 302.3 MOS/KG (273-304); Potassium 3.9 MMOL/L (3.5-5.1)
[2021-09-28] MEDS: POTASSIUM CHLORIDE RIDER 10 MEQ/100 ML PREMIX IV PRN (06:22)
[2021-09-28] MEDS: ALBUTEROL 2.5 MG/3 ML NEB RESP TX SCH ×2 (07:06→14:55)
[2021-09-28] MEDS: INSULIN LISPRO 100 UNIT/ML SUBCUT SCH ×2 (08:57→12:44)
[2021-09-28] MEDS: ZINC OXIDE PASTE 113 GM TUBE TOP SCH (09:05)
[2021-09-28] MEDS: APIXABAN 5 MG TABLET PO SCH (09:50)
[2021-09-28] MEDS: DOCUSATE SODIUM 100 MG CAPSULE PO SCH (09:50)
[2021-09-28] MEDS: DEXTROSE 5% 1,000 ML IV SCH (10:12)
[2021-09-28] MEDS ORDERED: SODIUM CHLORIDE 0.45% 1,000 ML IV ONE (11:44)
[2021-09-28] MEDS: hydrALAZINE 20 MG/1 ML VIAL IV PRN (14:09)
== END 2021-09-28 17:07 | DRG 947 ==
LOC: EDBD → EDUNIT# → EDSEX → N.ED 12:44 → N.EDINP 16:14 → SUATTDRO 16:14 → N.EDINP 18:48 → N.TELEN 19:24 → N.ICU 19:40
PROVIDERS: ADMIT Internal Medicine; ATTEND Emergency Medicine

== ENCOUNTER 2021-10-01 12:11 | Inpatient (IN) ==
[2021-10-01] MEDS ORDERED: SODIUM CHLORIDE 0.9% 1,000 ML IV STA (13:21)
[2021-10-01 13:42] LABS: Albumin 2.4 G/DL (3.4-5.0); Bilirubin,Total 0.8 MG/DL (0.20-1.00); Calcium 8.4 MG/DL (8.5-10.1); Osmolality,Calculated 308.3 MOS/KG (273-304); Total Protein 6.1 G/DL (6.4-8.2)
[2021-10-01] MEDS ORDERED: INSULIN REGULAR 100 UNIT/ML IV STA (14:13)
[2021-10-01 14:40] LABS: Hematocrit 32.3 VOL% (42.0-52.0); Hemoglobin 10.4 GM/DL (14.0-18.0); Immature Granulocytes % 1.1 %; Immature Granulocytes Absolute 0.04 #; Lymphocytes # 0.1 10*3/uL (1.4-4.0); Lymphocytes % 3.7 % (21.2-54.2); Mean Corpuscular HGB Conc 32.2 GM/DL (32-36); Mean Corpuscular Volume 92.6 FL (87-102); Monocytes % 2.1 % (1.7-12.7); Neutrophils % 93.1 % (38.7-73.9); Platelet Count 123 T/CUMM (130-400); Red Blood Count 3.49 MC/CUMM (3.8-5.5); Red Cell Distribution Width 17.1 % (9.3-17.3); White Blood Count 3.8 T/CUMM (4-12)
[2021-10-01 14:45] LABS: INR 1.2; PT Patient Result 13.4 SECS (10.5-12.0); Partial Thromboplastin Time 33.9 SECS (23.8-32.1)
[2021-10-01 14:51] LABS: Thyroid Stimulating Hormone 2.17 uIU/ml (0.358-3.74)
[2021-10-01 16:07] LABS: Bilirubin,Urine Negative (Negative); Blood, Urine Small mg/dL (Negative); Glucose,Urine (UA) >=500 mg/dL (Negative); Hyaline Casts,Urine 1 /LPF (0-3); Ketones,Urine Negative (Negative); Mucus,Urine Occasional /LPF (Occasional); Nitrite,Urine Negative (Negative); Protein,Urine 100 MG/DL; RBC,Urine 6 /HPF (0-4); Squamous Epithelial Cell,Urine Occasional /HPF (0-10); Urine Appearance CLEAR (Clear); Urine Color Yellow (Yellow); Urine Specific Gravity 1.018 (1.001-1.035); Urine Urobilinogen < 2.0 EU/DL (0.2-1.0)
[2021-10-01] MEDS ORDERED: ONDANSETRON 4 MG/2 ML VIAL IV PRN (17:48)
[2021-10-01] MEDS ORDERED: SIMETHICONE CHEW 125 MG TABLET PO PRN (17:48)
[2021-10-01] MEDS ORDERED: DOCUSATE SODIUM 100 MG CAPSULE PO PRN (17:48)
[2021-10-01] MEDS ORDERED: GLUCAGON 1 MG VIAL IM PRN (17:48)
[2021-10-01] MEDS ORDERED: DEXTROSE 50% 25 GM/50 ML SYRINGE IV PRN (17:55)
[2021-10-01 18:55] LABS: Lymphocytes 2 % (20-55); Segmented Neutrophils 97 % (50-85); Total Cells Counted 100
[2021-10-01 18:56] LABS: Ovalocytes Few; Platelet Estimate Adequate; Polychromasia Slight; Schistocytes Slight; Tear Drop Cells Few
[2021-10-01] MEDS ORDERED: HYDROCORTISONE 100 MG VIAL IV STA (22:13)
[2021-10-01] MEDS: ATORVASTATIN 10 MG TABLET PO SCH (22:14)
[2021-10-01] MEDS: ENOXAPARIN 40 MG/0.4 ML SYRINGE SUBCUT SCH (22:14)
[2021-10-01] MEDS: INSULIN REGULAR 100 UNIT/ML SUBCUT SCH (22:15)
[2021-10-01 22:46] LABS: Folate 15.22 NG/ML (5.38-24.0); Vitamin B12 1701 PG/ML (211-911)
[2021-10-02 01:40] LABS: ABG Base Excess 1.3 MMOL/L (-2.5-2.5); ABG HCO3 25.6 MMOL/L (20-26); ABG Oxygen Saturation 96.5 % (95-100); ABG PCO2 39.7 MM HG (35-48); ABG PO2 86.9 MM HG (80-95); ABG TCO2 23.4 MMOL/L (23-27)
[2021-10-02 01:48] LABS: Hematocrit 30.2 VOL% (42.0-52.0); Hemoglobin 9.7 GM/DL (14.0-18.0); Immature Granulocytes % 1.2 %; Immature Granulocytes Absolute 0.05 #; Lymphocytes # 0.1 10*3/uL (1.4-4.0); Lymphocytes % 2.9 % (21.2-54.2); Mean Corpuscular HGB Conc 32.1 GM/DL (32-36); Mean Corpuscular Volume 91.8 FL (87-102); Mean Platelet Volume 11.1 FL (9.6-12.0); Monocytes % 2.2 % (1.7-12.7); NRBC # 0.03 10*3/uL; Neutrophils % 93.7 % (38.7-73.9); Platelet Count 130 T/CUMM (130-400); Red Blood Count 3.29 MC/CUMM (3.8-5.5); Red Cell Distribution Width 17.2 % (9.3-17.3); White Blood Count 4.1 T/CUMM (4-12)
[2021-10-02 02:26] LABS: Band Neutrophils 3 % (0-10); Hypochromia Slight; Lymphocytes 2 % (20-55); Platelet Estimate Adequate; Segmented Neutrophils 93 % (50-85); Total Cells Counted 100
[2021-10-02] MEDS: LACTULOSE 20 GM/30 ML UDCUP PO SCH ×6 (02:45→22:19)
[2021-10-02] MEDS: HYDROCORTISONE 100 MG VIAL IV SCH ×4 (04:43→22:24)
[2021-10-02 05:18] LABS: Hemoglobin 9.9 GM/DL (14.0-18.0); Immature Granulocytes % 0.9 %; Immature Granulocytes Absolute 0.04 #; Lymphocytes # 0.1 10*3/uL (1.4-4.0); Lymphocytes % 3.2 % (21.2-54.2); Mean Corpuscular HGB Conc 31.9 GM/DL (32-36); Mean Corpuscular Volume 92.5 FL (87-102); Mean Platelet Volume 10.3 FL (9.6-12.0); Monocytes % 3.2 % (1.7-12.7); NRBC # 0.03 10*3/uL; Neutrophils % 92.7 % (38.7-73.9); Platelet Count 120 T/CUMM (130-400); Red Blood Count 3.35 MC/CUMM (3.8-5.5); Red Cell Distribution Width 17.4 % (9.3-17.3); White Blood Count 4.4 T/CUMM (4-12)
[2021-10-02 05:41] LABS: Hypochromia Slight; Lymphocytes 3 % (20-55); Platelet Estimate Normal; Segmented Neutrophils 94 % (50-85); Total Cells Counted 100
[2021-10-02 05:49] LABS: Calcium 8.4 MG/DL (8.5-10.1); Osmolality,Calculated 304.8 MOS/KG (273-304); Potassium 3.7 MMOL/L (3.5-5.1)
[2021-10-02] MEDS: LEVOTHYROXINE 75 MCG TABLET PO SCH (06:08)
[2021-10-02 06:51] LABS: Sedimentation Rate-Westergren 37 MM/HR (0-20)
[2021-10-02] MEDS: INSULIN REGULAR 100 UNIT/ML SUBCUT SCH ×5 (08:09→21:05)
[2021-10-02] MEDS: PANTOPRAZOLE 40 MG TABLET PO SCH (09:51)
[2021-10-02] MEDS ORDERED: ALBUTEROL/IPRATROPIUM 3 ML NEB RESP TX ONE (10:32)
[2021-10-02 11:06] LABS: Hemoglobin A1 (Alkaline) 98.3 % (96.5-98.5); Hemoglobin A2 (Alkaline) 1.7 % (1.5-3.5)
[2021-10-02] MEDS: ALBUTEROL 2.5 MG/3 ML NEB RESP TX SCH ×2 (14:00→19:52)
[2021-10-02] MEDS: ATORVASTATIN 10 MG TABLET PO SCH (22:19)
[2021-10-02] MEDS: ENOXAPARIN 40 MG/0.4 ML SYRINGE SUBCUT SCH (22:19)
[2021-10-03] MEDS: ALBUTEROL 2.5 MG/3 ML NEB RESP TX SCH ×4 (00:17→19:20)
[2021-10-03] MEDS: LACTULOSE 20 GM/30 ML UDCUP PO SCH ×5 (01:31→20:18)
[2021-10-03] MEDS: HYDROCORTISONE 100 MG VIAL IV SCH ×4 (03:01→22:30)
[2021-10-03 05:56] LABS: Hematocrit 31.1 VOL% (42.0-52.0); Hemoglobin 9.8 GM/DL (14.0-18.0); Immature Granulocytes % 1.7 %; Immature Granulocytes Absolute 0.16 #; Lymphocytes # 0.2 10*3/uL (1.4-4.0); Lymphocytes % 2.5 % (21.2-54.2); Mean Corpuscular HGB Conc 31.5 GM/DL (32-36); Mean Corpuscular Volume 93.7 FL (87-102); Mean Platelet Volume 11.5 FL (9.6-12.0); Monocytes % 4.4 % (1.7-12.7); NRBC # 0.06 10*3/uL; Neutrophils % 91.4 % (38.7-73.9); Platelet Count 154 T/CUMM (130-400); Red Blood Count 3.32 MC/CUMM (3.8-5.5); Red Cell Distribution Width 18.3 % (9.3-17.3); White Blood Count 9.3 T/CUMM (4-12)
[2021-10-03] MEDS: LEVOTHYROXINE 75 MCG TABLET PO SCH (06:11)
[2021-10-03 06:22] LABS: Albumin 2.1 G/DL (3.4-5.0); Bilirubin,Total 1.2 MG/DL (0.20-1.00); Calcium 8.2 MG/DL (8.5-10.1); Osmolality,Calculated 305.6 MOS/KG (273-304); Potassium 3.5 MMOL/L (3.5-5.1); Total Protein 5.3 G/DL (6.4-8.2)
[2021-10-03 06:24] LABS: Hypochromia 1+; Lymphocytes 2 % (20-55); Microcytosis 1+; Platelet Estimate Adequate; Segmented Neutrophils 96 % (50-85); Total Cells Counted 100
[2021-10-03 06:25] LABS: Calcium 8.2 MG/DL (8.5-10.1); Osmolality,Calculated 307.4 MOS/KG (273-304); Potassium 3.6 MMOL/L (3.5-5.1)
[2021-10-03] MEDS ORDERED: APIXABAN 5 MG TABLET PO SCH (09:00)
[2021-10-03] MEDS: INSULIN REGULAR 100 UNIT/ML SUBCUT SCH ×4 (10:12→20:17)
[2021-10-03] MEDS: PANTOPRAZOLE 40 MG TABLET PO SCH (10:12)
[2021-10-03] MEDS: ATORVASTATIN 10 MG TABLET PO SCH (20:18)
[2021-10-04] MEDS: ALBUTEROL 2.5 MG/3 ML NEB RESP TX SCH ×4 (00:25→19:56)
[2021-10-04] MEDS: HYDROCORTISONE 100 MG VIAL IV SCH ×4 (03:15→21:54)
[2021-10-04] MEDS: LACTULOSE 20 GM/30 ML UDCUP PO SCH ×3 (03:15→21:54)
[2021-10-04] MEDS: LEVOTHYROXINE 75 MCG TABLET PO SCH (05:33)
[2021-10-04 05:44] LABS: Hematocrit 30.9 VOL% (42.0-52.0); Hemoglobin 9.7 GM/DL (14.0-18.0); Immature Granulocytes % 1.1 %; Immature Granulocytes Absolute 0.13 #; Lymphocytes # 0.3 10*3/uL (1.4-4.0); Lymphocytes % 2.5 % (21.2-54.2); Mean Corpuscular HGB Conc 31.4 GM/DL (32-36); Mean Corpuscular Volume 94.5 FL (87-102); Mean Platelet Volume 10.6 FL (9.6-12.0); Monocytes % 4.2 % (1.7-12.7); NRBC # 0.05 10*3/uL; Neutrophils % 92.2 % (38.7-73.9); Platelet Count 142 T/CUMM (130-400); Red Blood Count 3.27 MC/CUMM (3.8-5.5); Red Cell Distribution Width 18.4 % (9.3-17.3); White Blood Count 11.5 T/CUMM (4-12)
[2021-10-04 05:57] LABS: Calcium 8.7 MG/DL (8.5-10.1); Osmolality,Calculated 302.3 MOS/KG (273-304); Potassium 3.2 MMOL/L (3.5-5.1)
[2021-10-04 06:13] LABS: Hypochromia 1+; Lymphocytes 3 % (20-55); Microcytosis 1+; Nucleated Red Blood Cells 1 (0-5); Platelet Estimate Adequate; Segmented Neutrophils 97 % (50-85); Total Cells Counted 100
[2021-10-04] MEDS ORDERED: POTASSIUM CHLORIDE RIDER 10 MEQ/100 ML PREMIX IV PRN (07:15)
[2021-10-04] MEDS: INSULIN REGULAR 100 UNIT/ML SUBCUT SCH ×4 (09:15→21:55)
[2021-10-04] MEDS: PANTOPRAZOLE 40 MG TABLET PO SCH (09:45)
[2021-10-04] MEDS: hydrALAZINE 25 MG TABLET NG SCH ×4 (11:51→21:54)
[2021-10-04] MEDS ORDERED: cefTRIAXone 1,000 MG in SODIUM CHLORIDE 0.9% 100 ML IV SCH (14:00)
[2021-10-04 15:37] LABS: ABG Base Excess -0.1 MMOL/L (-2.5-2.5); ABG HCO3 24.3 MMOL/L (20-26); ABG PCO2 41.7 MM HG (35-48); ABG PH 7.385 (7.35-7.45); ABG PO2 67.9 MM HG (80-95); ABG TCO2 22.6 MMOL/L (23-27); Allen Test Positive; Pt O2 Delivery Device Room Air
[2021-10-04] MEDS: AMPICILLIN INJ 2,000 MG in SODIUM CHLORIDE 0.9% 100 ML IV SCH (21:53)
[2021-10-04] MEDS: ATORVASTATIN 10 MG TABLET PO SCH (21:53)
[2021-10-04] MEDS: ACYCLOVIR INJ 750 MG in SODIUM CHLORIDE 0.9% 250 ML IV SCH (21:53)
[2021-10-05] MEDS: ALBUTEROL 2.5 MG/3 ML NEB RESP TX SCH ×4 (00:42→19:00)
[2021-10-05] MEDS: cefTRIAXone 2,000 MG in SODIUM CHLORIDE 0.9% 100 ML IV SCH ×2 (01:53→15:22)
[2021-10-05] MEDS: AMPICILLIN INJ 2,000 MG in SODIUM CHLORIDE 0.9% 100 ML IV SCH ×4 (02:59→22:25)
[2021-10-05] MEDS: LACTULOSE 20 GM/30 ML UDCUP PO SCH ×3 (04:23→22:02)
[2021-10-05] MEDS: HYDROCORTISONE 100 MG VIAL IV SCH ×4 (04:24→22:03)
[2021-10-05] MEDS: ACYCLOVIR INJ 750 MG in SODIUM CHLORIDE 0.9% 250 ML IV SCH ×3 (04:24→18:43)
[2021-10-05 05:42] LABS: Basophils % 0.1 % (0.0-0.8); Hematocrit 34.1 VOL% (42.0-52.0); Hemoglobin 10.1 GM/DL (14.0-18.0); Immature Granulocytes % 0.9 %; Immature Granulocytes Absolute 0.11 #; Lymphocytes # 0.4 10*3/uL (1.4-4.0); Mean Corpuscular HGB Conc 29.6 GM/DL (32-36); Mean Corpuscular Volume 98.3 FL (87-102); Mean Platelet Volume 10.9 FL (9.6-12.0); NRBC # 0.04 10*3/uL; Platelet Count 145 T/CUMM (130-400); Red Blood Count 3.47 MC/CUMM (3.8-5.5); Red Cell Distribution Width 18.7 % (9.3-17.3); White Blood Count 11.9 T/CUMM (4-12)
[2021-10-05] MEDS: LEVOTHYROXINE 75 MCG TABLET PO SCH (05:46)
[2021-10-05 06:04] LABS: Anisocytosis 1+; Band Neutrophils 1 % (0-10); Hypochromia 1+; Lymphocytes 1 % (20-55); Microcytosis 1+; Ovalocytes Slight; Segmented Neutrophils 93 % (50-85); Total Cells Counted 100
[2021-10-05 06:05] LABS: Platelet Estimate Adequate
[2021-10-05 06:12] LABS: Calcium 8.6 MG/DL (8.5-10.1); Osmolality,Calculated 309.9 MOS/KG (273-304); Potassium 3.3 MMOL/L (3.5-5.1)
[2021-10-05] MEDS: DEXTROSE 5% 1,000 ML IV SCH (09:50)
[2021-10-05] MEDS: PANTOPRAZOLE 40 MG TABLET PO SCH (09:54)
[2021-10-05] MEDS: INSULIN REGULAR 100 UNIT/ML SUBCUT SCH ×4 (10:36→22:03)
[2021-10-05 17:27] LABS: Glucose,CSF 124 MG/DL (40-70)
[2021-10-05 17:58] LABS: Appearance,CSF Clear; Lymphocytes,CSF 92 %; Neutrophils,CSF 8 %; Red Blood Cell,CSF 20 C/CUMM; White Blood Cell,CSF 34 C/CUMM
[2021-10-05] MEDS: ATORVASTATIN 10 MG TABLET PO SCH (22:03)
[2021-10-05] MEDS: CHOLECALCIFEROL 1,000 UNIT TABLET PER TUBE SCH (22:04)
[2021-10-06] MEDS: ALBUTEROL 2.5 MG/3 ML NEB RESP TX SCH ×4 (01:00→20:15)
[2021-10-06] MEDS: cefTRIAXone 2,000 MG in SODIUM CHLORIDE 0.9% 100 ML IV SCH ×2 (02:23→15:54)
[2021-10-06] MEDS: AMPICILLIN INJ 2,000 MG in SODIUM CHLORIDE 0.9% 100 ML IV SCH ×4 (03:50→19:45)
[2021-10-06] MEDS: HYDROCORTISONE 100 MG VIAL IV SCH ×3 (04:52→17:54)
[2021-10-06] MEDS: LACTULOSE 20 GM/30 ML UDCUP PO SCH ×2 (04:52→10:47)
[2021-10-06] MEDS: ACYCLOVIR INJ 750 MG in SODIUM CHLORIDE 0.9% 250 ML IV SCH ×3 (04:52→17:55)
[2021-10-06] MEDS: LEVOTHYROXINE 75 MCG TABLET PO SCH (06:10)
[2021-10-06 07:25] LABS: Basophils % 0.1 % (0.0-0.8); Hematocrit 34.3 VOL% (42.0-52.0); Hemoglobin 10.7 GM/DL (14.0-18.0); Immature Granulocytes % 0.6 %; Immature Granulocytes Absolute 0.05 #; Lymphocytes # 0.3 10*3/uL (1.4-4.0); Lymphocytes % 3.1 % (21.2-54.2); Mean Corpuscular HGB Conc 31.2 GM/DL (32-36); Mean Platelet Volume 11.1 FL (9.6-12.0); NRBC # 0.03 10*3/uL; Neutrophils % 91.2 % (38.7-73.9); Platelet Count 187 T/CUMM (130-400); Red Blood Count 3.61 MC/CUMM (3.8-5.5); Red Cell Distribution Width 18.4 % (9.3-17.3); White Blood Count 8.6 T/CUMM (4-12)
[2021-10-06 07:47] LABS: Calcium 8.6 MG/DL (8.5-10.1); Osmolality,Calculated 324.6 MOS/KG (273-304); Potassium 3.2 MMOL/L (3.5-5.1)
[2021-10-06 08:12] LABS: Anisocytosis 2+; Band Neutrophils 9 % (0-10); Lymphocytes 1 % (20-55); Macrocytosis 1+; Nucleated Red Blood Cells 2 (0-5); Platelet Estimate Normal; Segmented Neutrophils 87 % (50-85); Total Cells Counted 100
[2021-10-06 08:13] LABS: Target Cells Few; Tear Drop Cells Few
[2021-10-06 08:22] LABS: Calcium 8.6 MG/DL (8.5-10.1); Osmolality,Calculated 323.6 MOS/KG (273-304); Potassium 3.2 MMOL/L (3.5-5.1)
[2021-10-06] MEDS: INSULIN REGULAR 100 UNIT/ML SUBCUT SCH ×3 (10:02→17:41)
[2021-10-06] MEDS: PANTOPRAZOLE 40 MG TABLET PO SCH (10:33)
[2021-10-06] MEDS: CHOLECALCIFEROL 1,000 UNIT TABLET PER TUBE SCH (10:33)
[2021-10-06] MEDS: DEXTROSE 5% 1,000 ML IV SCH ×2 (10:45→13:13)
[2021-10-07] MEDS: ALBUTEROL 2.5 MG/3 ML NEB RESP TX SCH ×4 (00:28→19:40)
[2021-10-07] MEDS: LACTULOSE 20 GM/30 ML UDCUP PO SCH ×4 (00:54→23:15)
[2021-10-07] MEDS: HYDROCORTISONE 100 MG VIAL IV SCH ×6 (00:56→23:16)
[2021-10-07] MEDS: ATORVASTATIN 10 MG TABLET PO SCH ×2 (00:57→23:16)
[2021-10-07] MEDS: CHOLECALCIFEROL 1,000 UNIT TABLET PER TUBE SCH ×3 (00:57→23:16)
[2021-10-07] MEDS: INSULIN REGULAR 100 UNIT/ML SUBCUT SCH ×4 (01:10→16:00)
[2021-10-07] MEDS: AMPICILLIN INJ 2,000 MG in SODIUM CHLORIDE 0.9% 100 ML IV SCH ×4 (02:18→23:17)
[2021-10-07] MEDS: cefTRIAXone 2,000 MG in SODIUM CHLORIDE 0.9% 100 ML IV SCH ×2 (03:06→16:00)
[2021-10-07] MEDS: ACYCLOVIR INJ 750 MG in SODIUM CHLORIDE 0.9% 250 ML IV SCH ×3 (03:36→17:16)
[2021-10-07] MEDS: DEXTROSE 5% 1,000 ML IV SCH ×3 (06:05→23:10)
[2021-10-07 06:19] LABS: Basophils % 0.1 % (0.0-0.8); Eosinophils % 0.1 % (0.00-10.9); Hematocrit 32.6 VOL% (42.0-52.0); Hemoglobin 10.1 GM/DL (14.0-18.0); Immature Granulocytes Absolute 0.07 #; Lymphocytes # 0.3 10*3/uL (1.4-4.0); Lymphocytes % 3.7 % (21.2-54.2); Mean Platelet Volume 10.3 FL (9.6-12.0); Monocytes % 3.8 % (1.7-12.7); NRBC # 0.06 10*3/uL; Neutrophils % 91.3 % (38.7-73.9); Platelet Count 173 T/CUMM (130-400); Red Blood Count 3.43 MC/CUMM (3.8-5.5); Red Cell Distribution Width 18.5 % (9.3-17.3); White Blood Count 7.1 T/CUMM (4-12)
[2021-10-07 06:32] LABS: Calcium 8.6 MG/DL (8.5-10.1); Osmolality,Calculated 312.9 MOS/KG (273-304); Potassium 2.9 MMOL/L (3.5-5.1)
[2021-10-07 07:07] LABS: Eosinophils 1 % (0-10); Hypochromia Slight; Lymphocytes 5 % (20-55); Microcytosis Slight; Platelet Estimate Adequate; Segmented Neutrophils 92 % (50-85); Total Cells Counted 100
[2021-10-07] MEDS: LEVOTHYROXINE 75 MCG TABLET PO SCH (07:20)
[2021-10-07] MEDS ORDERED: POTASSIUM CHLORIDE 20 MEQ TABLET PO ONE ×2 (07:46→14:28)
[2021-10-07] MEDS: PANTOPRAZOLE 40 MG TABLET PO SCH (09:44)
[2021-10-07] MEDS: POTASSIUM CHLORIDE RIDER 10 MEQ/100 ML PREMIX IV PRN ×3 (11:35→13:51)
[2021-10-07 15:16] LABS: VDRL Spinal Fluid Negative (Negative)
[2021-10-08] MEDS: INSULIN REGULAR 100 UNIT/ML SUBCUT SCH ×4 (00:06→16:10)
[2021-10-08] MEDS: ALBUTEROL 2.5 MG/3 ML NEB RESP TX SCH ×4 (02:25→19:21)
[2021-10-08] MEDS: AMPICILLIN INJ 2,000 MG in SODIUM CHLORIDE 0.9% 100 ML IV SCH ×3 (02:45→13:49)
[2021-10-08] MEDS: cefTRIAXone 2,000 MG in SODIUM CHLORIDE 0.9% 100 ML IV SCH ×2 (03:17→13:50)
[2021-10-08] MEDS: ACYCLOVIR INJ 750 MG in SODIUM CHLORIDE 0.9% 250 ML IV SCH ×3 (03:50→18:14)
[2021-10-08] MEDS: HYDROCORTISONE 100 MG VIAL IV SCH ×3 (05:32→16:51)
[2021-10-08] MEDS: LACTULOSE 20 GM/30 ML UDCUP PO SCH ×3 (05:32→23:54)
[2021-10-08] MEDS: LEVOTHYROXINE 75 MCG TABLET PO SCH (05:35)
[2021-10-08 05:49] LABS: Eosinophils % 0.1 % (0.00-10.9); Hematocrit 32.9 VOL% (42.0-52.0); Hemoglobin 10.1 GM/DL (14.0-18.0); Immature Granulocytes % 0.8 %; Immature Granulocytes Absolute 0.06 #; Lymphocytes # 0.3 10*3/uL (1.4-4.0); Lymphocytes % 4.1 % (21.2-54.2); Mean Corpuscular HGB Conc 30.7 GM/DL (32-36); Mean Corpuscular Volume 95.6 FL (87-102); Mean Platelet Volume 10.8 FL (9.6-12.0); Monocytes % 4.3 % (1.7-12.7); NRBC # 0.04 10*3/uL; Neutrophils % 90.7 % (38.7-73.9); Platelet Count 195 T/CUMM (130-400); Red Blood Count 3.44 MC/CUMM (3.8-5.5); Red Cell Distribution Width 18.6 % (9.3-17.3); White Blood Count 7.5 T/CUMM (4-12)
[2021-10-08 05:51] LABS: Calcium 8.6 MG/DL (8.5-10.1); Osmolality,Calculated 313.1 MOS/KG (273-304); Potassium 3.5 MMOL/L (3.5-5.1)
[2021-10-08 06:26] LABS: Hypochromia 1+; Lymphocytes 4 % (20-55); Microcytosis 1+; Platelet Estimate Adequate; Segmented Neutrophils 92 % (50-85); Total Cells Counted 100
[2021-10-08] MEDS: INSULIN GLARGINE 100 UNIT/ML SUBCUT SCH (09:58)
[2021-10-08] MEDS: PANTOPRAZOLE 40 MG TABLET PO SCH (09:58)
[2021-10-08] MEDS: CHOLECALCIFEROL 1,000 UNIT TABLET PER TUBE SCH ×2 (09:58→23:50)
[2021-10-08] MEDS: DEXTROSE 5% 1,000 ML IV SCH ×2 (10:52→18:00)
[2021-10-08] MEDS: ACETAMINOPHEN 325 MG TABLET PO PRN (16:10)
[2021-10-08] MEDS: ATORVASTATIN 10 MG TABLET PO SCH (23:50)
[2021-10-09] MEDS: AMPICILLIN INJ 2,000 MG in SODIUM CHLORIDE 0.9% 100 ML IV SCH ×5 (00:36→23:30)
[2021-10-09] MEDS: INSULIN REGULAR 100 UNIT/ML SUBCUT SCH ×4 (00:56→16:48)
[2021-10-09] MEDS: ALBUTEROL 2.5 MG/3 ML NEB RESP TX SCH ×4 (01:41→19:04)
[2021-10-09] MEDS: HYDROCORTISONE 100 MG VIAL IV SCH ×5 (02:08→23:25)
[2021-10-09] MEDS: ACYCLOVIR INJ 750 MG in SODIUM CHLORIDE 0.9% 250 ML IV SCH ×2 (02:09→10:42)
[2021-10-09] MEDS: cefTRIAXone 2,000 MG in SODIUM CHLORIDE 0.9% 100 ML IV SCH ×3 (02:09→18:17)
[2021-10-09] MEDS: LACTULOSE 20 GM/30 ML UDCUP PO SCH ×3 (05:41→23:17)
[2021-10-09] MEDS: LEVOTHYROXINE 75 MCG TABLET PO SCH (05:51)
[2021-10-09 06:12] LABS: Basophils % 0.1 % (0.0-0.8); Eosinophils # 0.1 10*3/uL (0.0-0.87); Eosinophils % 1.1 % (0.00-10.9); Hematocrit 34.4 VOL% (42.0-52.0); Hemoglobin 10.7 GM/DL (14.0-18.0); Immature Granulocytes % 1.1 %; Immature Granulocytes Absolute 0.08 #; Lymphocytes # 0.5 10*3/uL (1.4-4.0); Lymphocytes % 6.7 % (21.2-54.2); Mean Corpuscular HGB Conc 31.1 GM/DL (32-36); Mean Corpuscular Volume 95.3 FL (87-102); Mean Platelet Volume 10.9 FL (9.6-12.0); Monocytes % 4.6 % (1.7-12.7); NRBC # 0.05 10*3/uL; Neutrophils % 86.4 % (38.7-73.9); Platelet Count 193 T/CUMM (130-400); Red Blood Count 3.61 MC/CUMM (3.8-5.5); Red Cell Distribution Width 18.4 % (9.3-17.3); White Blood Count 7.3 T/CUMM (4-12)
[2021-10-09 06:35] LABS: Calcium 8.9 MG/DL (8.5-10.1); Potassium 2.9 MMOL/L (3.5-5.1)
[2021-10-09 08:36] LABS: M. Tuberculosis PCR Result Negative (Negative); M. Tuberculosis PCR Source CSF
[2021-10-09] MEDS: PANTOPRAZOLE 40 MG TABLET PO SCH (09:14)
[2021-10-09] MEDS: DOXAZOSIN 1 MG TABLET PO SCH (09:14)
[2021-10-09] MEDS: CHOLECALCIFEROL 1,000 UNIT TABLET PER TUBE SCH ×2 (09:14→23:17)
[2021-10-09] MEDS: INSULIN GLARGINE 100 UNIT/ML SUBCUT SCH (09:15)
[2021-10-09] MEDS ORDERED: TUBERCULIN SKIN TEST 0.1 ML SYRINGE INTRADERM ONE (09:22)
[2021-10-09] MEDS: DEXTROSE 5% 1,000 ML IV SCH ×3 (09:56→14:25)
[2021-10-09] MEDS: ACETAMINOPHEN 325 MG TABLET PO PRN (10:03)
[2021-10-09] MEDS ORDERED: cefTRIAXone 2,000 MG in SODIUM CHLORIDE 0.9% 100 ML IV SCH (17:00)
[2021-10-09] MEDS ORDERED: ACYCLOVIR INJ 750 MG in SODIUM CHLORIDE 0.9% 250 ML IV SCH (20:00)
[2021-10-09] MEDS: ATORVASTATIN 10 MG TABLET PO SCH (23:17)
[2021-10-10] MEDS: DEXTROSE 5% 1,000 ML IV SCH ×3 (00:14→21:20)
[2021-10-10] MEDS: INSULIN REGULAR 100 UNIT/ML SUBCUT SCH ×3 (01:07→17:23)
[2021-10-10] MEDS: HYDROCORTISONE 100 MG VIAL IV SCH ×4 (03:48→21:15)
[2021-10-10] MEDS: AMPICILLIN INJ 2,000 MG in SODIUM CHLORIDE 0.9% 100 ML IV SCH ×4 (03:50→21:18)
[2021-10-10] MEDS: LACTULOSE 20 GM/30 ML UDCUP PO SCH ×3 (03:50→21:08)
[2021-10-10 05:19] LABS: Hemoglobin 10.1 GM/DL (14.0-18.0); Immature Granulocytes % 1.3 %; Immature Granulocytes Absolute 0.08 #; Lymphocytes # 0.2 10*3/uL (1.4-4.0); Lymphocytes % 3.2 % (21.2-54.2); Mean Corpuscular HGB Conc 30.6 GM/DL (32-36); Mean Corpuscular Volume 95.9 FL (87-102); Mean Platelet Volume 10.2 FL (9.6-12.0); NRBC # 0.06 10*3/uL; Neutrophils % 91.5 % (38.7-73.9); Platelet Count 173 T/CUMM (130-400); Red Blood Count 3.44 MC/CUMM (3.8-5.5); Red Cell Distribution Width 18.7 % (9.3-17.3); White Blood Count 6.2 T/CUMM (4-12)
[2021-10-10 05:34] LABS: Calcium 8.7 MG/DL (8.5-10.1); Potassium 3.4 MMOL/L (3.5-5.1)
[2021-10-10 05:43] LABS: Band Neutrophils 1 % (0-10); Lymphocytes 3 % (20-55); Nucleated Red Blood Cells 1 (0-5); Segmented Neutrophils 93 % (50-85); Total Cells Counted 100
[2021-10-10 05:44] LABS: Hypochromia Slight; Microcytosis Slight; Platelet Estimate Adequate
[2021-10-10] MEDS: LEVOTHYROXINE 75 MCG TABLET PO SCH (06:30)
[2021-10-10] MEDS: cefTRIAXone 2,000 MG in SODIUM CHLORIDE 0.9% 100 ML IV SCH ×2 (06:33→20:21)
[2021-10-10] MEDS: ALBUTEROL 2.5 MG/3 ML NEB RESP TX SCH ×3 (07:00→19:45)
[2021-10-10] MEDS: INSULIN GLARGINE 100 UNIT/ML SUBCUT SCH ×2 (09:08→09:17)
[2021-10-10] MEDS: CHOLECALCIFEROL 1,000 UNIT TABLET PER TUBE SCH ×2 (09:09→21:08)
[2021-10-10] MEDS: PANTOPRAZOLE 40 MG TABLET PO SCH (09:09)
[2021-10-10] MEDS: DOXAZOSIN 1 MG TABLET PO SCH (09:09)
[2021-10-10 12:33] LABS: West Nile Virus Ab, IgG, CSF Negative (Negative); West Nile Virus Ab, IgM, CSF Negative (Negative)
[2021-10-10] MEDS: ATORVASTATIN 10 MG TABLET PO SCH (21:08)
[2021-10-11] MEDS: INSULIN REGULAR 100 UNIT/ML SUBCUT SCH ×3 (00:09→17:20)
[2021-10-11] MEDS: ALBUTEROL 2.5 MG/3 ML NEB RESP TX SCH ×5 (01:04→19:35)
[2021-10-11] MEDS: LACTULOSE 20 GM/30 ML UDCUP PO SCH ×3 (03:18→21:36)
[2021-10-11] MEDS: HYDROCORTISONE 100 MG VIAL IV SCH ×4 (03:46→21:37)
[2021-10-11] MEDS: AMPICILLIN INJ 2,000 MG in SODIUM CHLORIDE 0.9% 100 ML IV SCH ×4 (03:48→21:36)
[2021-10-11 05:51] LABS: PT Patient Result 11.5 SECS (10.5-12.0)
[2021-10-11 06:12] LABS: Calcium 8.2 MG/DL (8.5-10.1); Osmolality,Calculated 314.7 MOS/KG (273-304); Potassium 3.8 MMOL/L (3.5-5.1)
[2021-10-11 06:14] LABS: Hematocrit 31.5 VOL% (42.0-52.0); Hemoglobin 9.6 GM/DL (14.0-18.0); Immature Granulocytes % 1.1 %; Immature Granulocytes Absolute 0.07 #; Lymphocytes # 0.3 10*3/uL (1.4-4.0); Lymphocytes % 4.7 % (21.2-54.2); Mean Corpuscular HGB Conc 30.5 GM/DL (32-36); Mean Corpuscular Volume 97.5 FL (87-102); Mean Platelet Volume 11.1 FL (9.6-12.0); Monocytes % 4.7 % (1.7-12.7); NRBC # 0.09 10*3/uL; Neutrophils % 89.5 % (38.7-73.9); Platelet Count 165 T/CUMM (130-400); Red Blood Count 3.23 MC/CUMM (3.8-5.5); Red Cell Distribution Width 19.1 % (9.3-17.3); White Blood Count 6.3 T/CUMM (4-12)
[2021-10-11] MEDS: DEXTROSE 5% 1,000 ML IV SCH ×3 (06:18→17:00)
[2021-10-11] MEDS: LEVOTHYROXINE 75 MCG TABLET PO SCH (06:20)
[2021-10-11] MEDS: cefTRIAXone 2,000 MG in SODIUM CHLORIDE 0.9% 100 ML IV SCH ×2 (06:25→18:39)
[2021-10-11 07:01] LABS: Hypochromia 1+; Lymphocytes 4 % (20-55); Microcytosis 1+; Nucleated Red Blood Cells 2 (0-5); Platelet Estimate Adequate; Segmented Neutrophils 93 % (50-85); Total Cells Counted 100
[2021-10-11] MEDS: LACTATED RINGERS 1,000 ML IV SCH (09:57)
[2021-10-11] MEDS: CHOLECALCIFEROL 1,000 UNIT TABLET PER TUBE SCH ×2 (10:04→21:35)
[2021-10-11] MEDS: DOXAZOSIN 1 MG TABLET PO SCH (10:04)
[2021-10-11] MEDS: PANTOPRAZOLE 40 MG TABLET PO SCH (10:04)
[2021-10-11] MEDS: INSULIN GLARGINE 100 UNIT/ML SUBCUT SCH (12:38)
[2021-10-11] MEDS: ATORVASTATIN 10 MG TABLET PO SCH (21:35)
[2021-10-12] MEDS: ALBUTEROL 2.5 MG/3 ML NEB RESP TX SCH ×4 (01:27→20:25)
[2021-10-12] MEDS: INSULIN REGULAR 100 UNIT/ML SUBCUT SCH ×3 (01:45→17:17)
[2021-10-12] MEDS: DEXTROSE 5% 1,000 ML IV SCH ×2 (02:09→14:32)
[2021-10-12] MEDS: LACTULOSE 20 GM/30 ML UDCUP PO SCH ×3 (02:54→23:47)
[2021-10-12] MEDS: HYDROCORTISONE 100 MG VIAL IV SCH ×4 (04:37→21:53)
[2021-10-12] MEDS: AMPICILLIN INJ 2,000 MG in SODIUM CHLORIDE 0.9% 100 ML IV SCH ×4 (04:37→21:53)
[2021-10-12 05:29] LABS: Eosinophils % 0.4 % (0.00-10.9); Hematocrit 30.5 VOL% (42.0-52.0); Immature Granulocytes % 1.1 %; Immature Granulocytes Absolute 0.08 #; Lymphocytes # 0.6 10*3/uL (1.4-4.0); Lymphocytes % 8.3 % (21.2-54.2); Mean Corpuscular HGB Conc 29.5 GM/DL (32-36); Mean Corpuscular Volume 99.7 FL (87-102); Mean Platelet Volume 11.3 FL (9.6-12.0); Monocytes % 6.9 % (1.7-12.7); NRBC # 0.05 10*3/uL; Neutrophils % 83.3 % (38.7-73.9); Platelet Count 123 T/CUMM (130-400); Red Blood Count 3.06 MC/CUMM (3.8-5.5); Red Cell Distribution Width 19.6 % (9.3-17.3); White Blood Count 7.1 T/CUMM (4-12)
[2021-10-12 05:43] LABS: Calcium 8.6 MG/DL (8.5-10.1); Osmolality,Calculated 312.1 MOS/KG (273-304)
[2021-10-12] MEDS: LEVOTHYROXINE 75 MCG TABLET PO SCH (06:15)
[2021-10-12 06:18] LABS: Platelet Estimate Normal
[2021-10-12] MEDS: cefTRIAXone 2,000 MG in SODIUM CHLORIDE 0.9% 100 ML IV SCH ×2 (06:20→18:24)
[2021-10-12] MEDS: CHOLECALCIFEROL 1,000 UNIT TABLET PER TUBE SCH ×2 (10:33→21:53)
[2021-10-12] MEDS: PANTOPRAZOLE 40 MG TABLET PO SCH (10:33)
[2021-10-12] MEDS: DOXAZOSIN 1 MG TABLET PO SCH (10:33)
[2021-10-12] MEDS: INSULIN GLARGINE 100 UNIT/ML SUBCUT SCH (10:34)
[2021-10-12] MEDS: LACTATED RINGERS 1,000 ML IV SCH (11:56)
[2021-10-12] MEDS ORDERED: FUROSEMIDE 40 MG/4 ML VIAL IV ONE (13:06)
[2021-10-12 14:39] LABS: Bilirubin,Urine Negative (Negative); Blood, Urine Small mg/dL (Negative); Glucose,Urine (UA) 50 mg/dL (Negative); Ketones,Urine Negative (Negative); Mucus,Urine Occasional /LPF (Occasional); Nitrite,Urine Negative (Negative); Protein,Urine >=500 MG/DL; RBC,Urine 1 /HPF (0-4); Squamous Epithelial Cell,Urine Occasional /HPF (0-10); Urine Appearance Slightly Hazy (Clear); Urine Color Yellow (Yellow); Urine Specific Gravity 1.023 (1.001-1.035); Urine Urobilinogen < 2.0 EU/DL (<2.0)
[2021-10-12] MEDS ORDERED: SODIUM CHLORIDE 0.45% 1,000 ML IV SCH (16:00)
[2021-10-12] MEDS: ATORVASTATIN 10 MG TABLET PO SCH (21:53)
[2021-10-13] MEDS: INSULIN REGULAR 100 UNIT/ML SUBCUT SCH ×4 (01:26→23:55)
[2021-10-13] MEDS: ALBUTEROL 2.5 MG/3 ML NEB RESP TX SCH ×4 (01:40→19:55)
[2021-10-13] MEDS: AMPICILLIN INJ 2,000 MG in SODIUM CHLORIDE 0.9% 100 ML IV SCH ×4 (03:30→22:14)
[2021-10-13] MEDS: LACTULOSE 20 GM/30 ML UDCUP PO SCH ×3 (03:45→20:32)
[2021-10-13 05:10] LABS: Hematocrit 29.9 VOL% (42.0-52.0); Hemoglobin 9.1 GM/DL (14.0-18.0); Immature Granulocytes % 0.9 %; Immature Granulocytes Absolute 0.06 #; Lymphocytes # 0.4 10*3/uL (1.4-4.0); Lymphocytes % 5.3 % (21.2-54.2); Mean Corpuscular HGB Conc 30.4 GM/DL (32-36); Mean Platelet Volume 11.1 FL (9.6-12.0); Monocytes % 5.5 % (1.7-12.7); NRBC # 0.02 10*3/uL; Neutrophils % 88.3 % (38.7-73.9); Platelet Count 146 T/CUMM (130-400); Red Blood Count 3.05 MC/CUMM (3.8-5.5); Red Cell Distribution Width 19.5 % (9.3-17.3); White Blood Count 6.9 T/CUMM (4-12)
[2021-10-13 05:29] LABS: INR 1.1; PT Patient Result 11.7 SECS (10.5-12.0)
[2021-10-13 05:42] LABS: Calcium 8.3 MG/DL (8.5-10.1); Osmolality,Calculated 319.9 MOS/KG (273-304); Potassium 4.2 MMOL/L (3.5-5.1)
[2021-10-13 05:46] LABS: Calcium 8.2 MG/DL (8.5-10.1); Osmolality,Calculated 316.1 MOS/KG (273-304); Potassium 4.4 MMOL/L (3.5-5.1)
[2021-10-13 05:56] LABS: Band Neutrophils 1 % (0-10); Lymphocytes 3 % (20-55); Platelet Estimate Normal; Segmented Neutrophils 93 % (50-85); Total Cells Counted 100
[2021-10-13 05:57] LABS: Hypochromia Slight
[2021-10-13] MEDS: LEVOTHYROXINE 75 MCG TABLET PO SCH (06:15)
[2021-10-13] MEDS: HYDROCORTISONE 100 MG VIAL IV SCH ×4 (06:18→22:14)
[2021-10-13] MEDS ORDERED: MIDAZOLAM 2 MG/2 ML VIAL IV ONE (07:00)
[2021-10-13] MEDS ORDERED: fentaNYL 100 MCG/2 ML VIAL IV ONE (07:00)
[2021-10-13] MEDS: cefTRIAXone 2,000 MG in SODIUM CHLORIDE 0.9% 100 ML IV SCH ×2 (07:00→17:54)
[2021-10-13] MEDS ORDERED: DIAZEPAM 5 MG TABLET PO ONE (07:00)
[2021-10-13] MEDS: CHOLECALCIFEROL 1,000 UNIT TABLET PER TUBE SCH ×2 (10:14→21:14)
[2021-10-13] MEDS: PANTOPRAZOLE 40 MG TABLET PO SCH (10:15)
[2021-10-13] MEDS: DOXAZOSIN 1 MG TABLET PO SCH (10:15)
[2021-10-13] MEDS: ACETAMINOPHEN 325 MG TABLET PO PRN (10:15)
[2021-10-13] MEDS: INSULIN GLARGINE 100 UNIT/ML SUBCUT SCH (10:16)
[2021-10-13] MEDS: LACTATED RINGERS 1,000 ML IV SCH (10:17)
[2021-10-13] MEDS: FUROSEMIDE 20 MG/2 ML VIAL IV SCH ×2 (12:49→22:14)
[2021-10-13] MEDS: DEXTROSE 5% 1,000 ML IV SCH ×3 (12:49→17:28)
[2021-10-13] MEDS: ATORVASTATIN 10 MG TABLET PO SCH (21:14)
[2021-10-14] MEDS: ALBUTEROL 2.5 MG/3 ML NEB RESP TX SCH ×4 (00:53→19:51)
[2021-10-14 02:49] LABS: Hematocrit 31.7 VOL% (42.0-52.0); Hemoglobin 9.6 GM/DL (14.0-18.0); Immature Granulocytes % 1.4 %; Immature Granulocytes Absolute 0.09 #; Lymphocytes # 0.3 10*3/uL (1.4-4.0); Mean Corpuscular HGB Conc 30.3 GM/DL (32-36); Mean Corpuscular Volume 96.6 FL (87-102); Monocytes % 3.8 % (1.7-12.7); NRBC # 0.02 10*3/uL; Neutrophils % 90.8 % (38.7-73.9); Platelet Count 143 T/CUMM (130-400); Red Blood Count 3.28 MC/CUMM (3.8-5.5); Red Cell Distribution Width 19.4 % (9.3-17.3); White Blood Count 6.2 T/CUMM (4-12)
[2021-10-14 03:16] LABS: Lymphocytes 3 % (20-55); Nucleated Red Blood Cells 3 (0-5); Platelet Estimate Normal; Segmented Neutrophils 95 % (50-85); Total Cells Counted 100
[2021-10-14] MEDS: INSULIN REGULAR 100 UNIT/ML SUBCUT SCH ×5 (03:16→20:55)
[2021-10-14] MEDS: LACTULOSE 20 GM/30 ML UDCUP PO SCH ×3 (03:20→20:21)
[2021-10-14 03:21] LABS: Hypochromia Slight
[2021-10-14 03:23] LABS: Schistocytes Slight; Stomatocytes 1+
[2021-10-14 03:24] LABS: Anisocytosis 1+; Microcytosis Slight
[2021-10-14] MEDS: AMPICILLIN INJ 2,000 MG in SODIUM CHLORIDE 0.9% 100 ML IV SCH ×4 (04:21→21:21)
[2021-10-14] MEDS: HYDROCORTISONE 100 MG VIAL IV SCH ×2 (04:21→10:06)
[2021-10-14 06:05] LABS: Calcium 8.3 MG/DL (8.5-10.1); Osmolality,Calculated 328.9 MOS/KG (273-304); Potassium 3.4 MMOL/L (3.5-5.1)
[2021-10-14] MEDS: cefTRIAXone 2,000 MG in SODIUM CHLORIDE 0.9% 100 ML IV SCH ×2 (06:22→17:52)
[2021-10-14] MEDS: LEVOTHYROXINE 75 MCG TABLET PO SCH (06:30)
[2021-10-14] MEDS: PANTOPRAZOLE 40 MG TABLET PO SCH (10:05)
[2021-10-14] MEDS: CHOLECALCIFEROL 1,000 UNIT TABLET PER TUBE SCH ×2 (10:05→21:22)
[2021-10-14] MEDS: DOXAZOSIN 1 MG TABLET PO SCH ×2 (10:05→21:22)
[2021-10-14] MEDS: INSULIN GLARGINE 100 UNIT/ML SUBCUT SCH (10:06)
[2021-10-14] MEDS: FLUCONAZOLE INJ 200 MG/100 ML PREMIX IV SCH (11:31)
[2021-10-14] MEDS: DEXTROSE 5% 1,000 ML IV SCH ×3 (11:38→17:40)
[2021-10-14] MEDS: NYSTATIN CREAM 15 GM TUBE TOP SCH ×2 (16:20→21:23)
[2021-10-14] MEDS: ATORVASTATIN 10 MG TABLET PO SCH (21:22)
[2021-10-14] MEDS ORDERED: HYDROCORTISONE 100 MG VIAL IV SCH (22:00)
[2021-10-15] MEDS: DEXTROSE 5% 1,000 ML IV SCH ×4 (00:56→18:32)
[2021-10-15] MEDS: INSULIN REGULAR 100 UNIT/ML SUBCUT SCH ×6 (00:56→21:56)
[2021-10-15] MEDS: ALBUTEROL 2.5 MG/3 ML NEB RESP TX SCH ×4 (01:19→19:46)
[2021-10-15] MEDS: AMPICILLIN INJ 2,000 MG in SODIUM CHLORIDE 0.9% 100 ML IV SCH ×3 (03:50→18:24)
[2021-10-15] MEDS: LACTULOSE 20 GM/30 ML UDCUP PO SCH ×3 (04:57→21:57)
[2021-10-15] MEDS: LEVOTHYROXINE 75 MCG TABLET PO SCH (05:30)
[2021-10-15] MEDS: cefTRIAXone 2,000 MG in SODIUM CHLORIDE 0.9% 100 ML IV SCH ×2 (05:30→22:03)
[2021-10-15 05:44] LABS: Eosinophils % 0.3 % (0.00-10.9); Hematocrit 29.8 VOL% (42.0-52.0); Hemoglobin 9.1 GM/DL (14.0-18.0); Immature Granulocytes Absolute 0.07 #; Lymphocytes # 0.5 10*3/uL (1.4-4.0); Lymphocytes % 6.6 % (21.2-54.2); Mean Corpuscular HGB Conc 30.5 GM/DL (32-36); Mean Corpuscular Volume 98.7 FL (87-102); Mean Platelet Volume 11.1 FL (9.6-12.0); NRBC # 0.05 10*3/uL; Neutrophils % 87.1 % (38.7-73.9); Platelet Count 173 T/CUMM (130-400); Red Blood Count 3.02 MC/CUMM (3.8-5.5); Red Cell Distribution Width 19.1 % (9.3-17.3)
[2021-10-15 05:57] LABS: Calcium 8.4 MG/DL (8.5-10.1); Osmolality,Calculated 313.3 MOS/KG (273-304); Potassium 3.4 MMOL/L (3.5-5.1)
[2021-10-15 06:03] LABS: Albumin 1.9 G/DL (3.4-5.0); Calcium 8.2 MG/DL (8.5-10.1); Osmolality,Calculated 321.7 MOS/KG (273-304); Potassium 3.4 MMOL/L (3.5-5.1)
[2021-10-15 06:37] LABS: Band Neutrophils 4 % (0-10); Eosinophils 1 % (0-10); Lymphocytes 4 % (20-55); Platelet Estimate Normal; Segmented Neutrophils 85 % (50-85); Total Cells Counted 100
[2021-10-15 06:38] LABS: Hypochromia 2+
[2021-10-15] MEDS ORDERED: POTASSIUM BICARB EFFERVESCENT 20 MEQ TAB.EFF PER TUBE PRN (08:34)
[2021-10-15] MEDS: INSULIN GLARGINE 100 UNIT/ML SUBCUT SCH (10:14)
[2021-10-15] MEDS: DOXAZOSIN 1 MG TABLET PO SCH ×2 (10:15→21:57)
[2021-10-15] MEDS: CHOLECALCIFEROL 1,000 UNIT TABLET PER TUBE SCH ×2 (10:15→21:57)
[2021-10-15] MEDS: PANTOPRAZOLE 40 MG TABLET PO SCH ×2 (10:15→11:23)
[2021-10-15] MEDS: NYSTATIN CREAM 15 GM TUBE TOP SCH ×3 (10:16→22:04)
[2021-10-15] MEDS: FLUCONAZOLE INJ 200 MG/100 ML PREMIX IV SCH (11:23)
[2021-10-15] MEDS ORDERED: POTASSIUM PHOSPHATE 15 MMOL in SODIUM CHLORIDE 0.9% 100 ML IV ONE (12:10)
[2021-10-15] MEDS: FUROSEMIDE 40 MG/4 ML VIAL IV SCH ×2 (14:09→22:00)
[2021-10-15] MEDS: ATORVASTATIN 10 MG TABLET PO SCH (21:57)
[2021-10-16] MEDS: INSULIN REGULAR 100 UNIT/ML SUBCUT SCH ×6 (01:13→23:51)
[2021-10-16] MEDS: DEXTROSE 5% 1,000 ML IV SCH ×3 (01:14→18:23)
[2021-10-16] MEDS: ACETAMINOPHEN 325 MG TABLET PO PRN (01:43)
[2021-10-16] MEDS: AMPICILLIN INJ 2,000 MG in SODIUM CHLORIDE 0.9% 100 ML IV SCH ×5 (01:43→23:51)
[2021-10-16] MEDS: ALBUTEROL 2.5 MG/3 ML NEB RESP TX SCH ×4 (01:55→19:25)
[2021-10-16] MEDS: LACTULOSE 20 GM/30 ML UDCUP PO SCH ×2 (04:19→12:33)
[2021-10-16] MEDS: LEVOTHYROXINE 75 MCG TABLET PO SCH (05:52)
[2021-10-16 05:56] LABS: Basophils % 0.1 % (0.0-0.8); Eosinophils # 0.1 10*3/uL (0.0-0.87); Eosinophils % 1.3 % (0.00-10.9); Hematocrit 29.6 VOL% (42.0-52.0); Hemoglobin 8.9 GM/DL (14.0-18.0); Immature Granulocytes % 1.2 %; Immature Granulocytes Absolute 0.08 #; Lymphocytes # 0.6 10*3/uL (1.4-4.0); Lymphocytes % 9.1 % (21.2-54.2); Mean Corpuscular HGB Conc 30.1 GM/DL (32-36); Mean Corpuscular Volume 99.3 FL (87-102); Mean Platelet Volume 10.5 FL (9.6-12.0); Monocytes % 6.1 % (1.7-12.7); NRBC # 0.07 10*3/uL; Neutrophils % 82.2 % (38.7-73.9); Platelet Count 163 T/CUMM (130-400); Red Blood Count 2.98 MC/CUMM (3.8-5.5); Red Cell Distribution Width 19.1 % (9.3-17.3); White Blood Count 6.7 T/CUMM (4-12)
[2021-10-16 06:34] LABS: Calcium 7.8 MG/DL (8.5-10.1); Potassium 3.5 MMOL/L (3.5-5.1)
[2021-10-16] MEDS: cefTRIAXone 2,000 MG in SODIUM CHLORIDE 0.9% 100 ML IV SCH ×2 (06:38→18:26)
[2021-10-16] MEDS: CHOLECALCIFEROL 1,000 UNIT TABLET PER TUBE SCH ×2 (09:29→23:51)
[2021-10-16] MEDS: DOXAZOSIN 1 MG TABLET PO SCH ×2 (09:29→23:51)
[2021-10-16] MEDS: OMEPRAZOLE ODT 20 MG TABLET NG SCH (09:29)
[2021-10-16] MEDS: INSULIN GLARGINE 100 UNIT/ML SUBCUT SCH (09:29)
[2021-10-16] MEDS: NYSTATIN CREAM 15 GM TUBE TOP SCH ×3 (10:12→23:51)
[2021-10-16] MEDS: FLUCONAZOLE INJ 200 MG/100 ML PREMIX IV SCH (11:23)
[2021-10-16] MEDS ORDERED: FUROSEMIDE 20 MG/2 ML VIAL IV ONE (11:26)
[2021-10-16 11:43] LABS: Bilirubin,Urine Negative (Negative); Blood, Urine Moderate mg/dL (Negative); Glucose,Urine (UA) Negative (Negative); Hyaline Casts,Urine 34 /LPF (0-3); Ketones,Urine Negative (Negative); Mucus,Urine Occasional /LPF (Occasional); Nitrite,Urine Negative (Negative); Protein,Urine >=500 MG/DL; RBC,Urine 141 /HPF (0-4); Urine Appearance CLOUDY (Clear); Urine Color Yellow (Yellow); Urine Specific Gravity 1.022 (1.001-1.035); Urine Urobilinogen < 2.0 EU/DL (<2.0)
[2021-10-16] MEDS: FUROSEMIDE 20 MG/2 ML VIAL IV SCH (16:28)
[2021-10-16] MEDS: SKIN HEALING OINT (AQUAPHOR) 50 GM TUBE TOP SCH (16:28)
[2021-10-16] MEDS: ATORVASTATIN 10 MG TABLET PO SCH (23:51)
[2021-10-17] MEDS: ALBUTEROL 2.5 MG/3 ML NEB RESP TX SCH ×4 (00:56→20:30)
[2021-10-17] MEDS: LACTULOSE 20 GM/30 ML UDCUP PO SCH ×4 (03:10→21:56)
[2021-10-17] MEDS: INSULIN REGULAR 100 UNIT/ML SUBCUT SCH ×6 (03:11→21:57)
[2021-10-17] MEDS: DEXTROSE 5% 1,000 ML IV SCH ×4 (03:14→18:34)
[2021-10-17 04:24] LABS: Basophils % 0.2 % (0.0-0.8); Eosinophils # 0.1 10*3/uL (0.0-0.87); Eosinophils % 0.8 % (0.00-10.9); Hematocrit 30.2 VOL% (42.0-52.0); Immature Granulocytes % 0.9 %; Immature Granulocytes Absolute 0.06 #; Lymphocytes # 0.4 10*3/uL (1.4-4.0); Lymphocytes % 6.7 % (21.2-54.2); Mean Corpuscular HGB Conc 29.8 GM/DL (32-36); Mean Platelet Volume 10.6 FL (9.6-12.0); Monocytes % 5.3 % (1.7-12.7); NRBC # 0.05 10*3/uL; Neutrophils % 86.1 % (38.7-73.9); Platelet Count 169 T/CUMM (130-400); Red Blood Count 3.02 MC/CUMM (3.8-5.5); Red Cell Distribution Width 19.2 % (9.3-17.3); White Blood Count 6.5 T/CUMM (4-12)
[2021-10-17 04:33] LABS: INR 1.1; PT Patient Result 11.9 SECS (10.5-12.0)
[2021-10-17 04:53] LABS: Calcium 7.6 MG/DL (8.5-10.1); Osmolality,Calculated 302.7 MOS/KG (273-304); Potassium 3.6 MMOL/L (3.5-5.1)
[2021-10-17 04:56] LABS: Band Neutrophils 1 % (0-10); Eosinophils 1 % (0-10); Hypochromia 1+; Lymphocytes 7 % (20-55); Microcytosis 1+; Nucleated Red Blood Cells 3 (0-5); Segmented Neutrophils 85 % (50-85); Total Cells Counted 100
[2021-10-17 04:57] LABS: Platelet Estimate Adequate; Tear Drop Cells Slight
[2021-10-17] MEDS: LEVOTHYROXINE 75 MCG TABLET PO SCH (06:23)
[2021-10-17] MEDS: AMPICILLIN INJ 2,000 MG in SODIUM CHLORIDE 0.9% 100 ML IV SCH ×3 (06:30→18:34)
[2021-10-17] MEDS ORDERED: DIAZEPAM 5 MG TABLET PO ONE ×2 (07:00)
[2021-10-17] MEDS ORDERED: SODIUM CHLORIDE 0.45% 1,000 ML IV SCH ×2 (07:00)
[2021-10-17] MEDS ORDERED: fentaNYL 100 MCG/2 ML VIAL IV ONE ×2 (07:00)
[2021-10-17] MEDS ORDERED: MIDAZOLAM 10 MG/2 ML VIAL IV ONE ×2 (07:00)
[2021-10-17] MEDS: cefTRIAXone 2,000 MG in SODIUM CHLORIDE 0.9% 100 ML IV SCH ×2 (07:21→17:55)
[2021-10-17] MEDS ORDERED: MIDAZOLAM 2 MG/2 ML VIAL ONE (08:00)
[2021-10-17] MEDS ORDERED: LIDOCAINE 1%/EPI INJ 20 ML VIAL ONE (08:37)
[2021-10-17] MEDS: SKIN HEALING OINT (AQUAPHOR) 50 GM TUBE TOP SCH (09:44)
[2021-10-17] MEDS: FUROSEMIDE 20 MG/2 ML VIAL IV SCH ×2 (09:44→16:15)
[2021-10-17] MEDS: INSULIN GLARGINE 100 UNIT/ML SUBCUT SCH (09:44)
[2021-10-17] MEDS: OMEPRAZOLE ODT 20 MG TABLET NG SCH (09:45)
[2021-10-17] MEDS: CHOLECALCIFEROL 1,000 UNIT TABLET PER TUBE SCH ×2 (09:45→21:56)
[2021-10-17] MEDS: NYSTATIN CREAM 15 GM TUBE TOP SCH ×3 (09:46→22:07)
[2021-10-17] MEDS: DOXAZOSIN 1 MG TABLET PO SCH ×2 (09:46→22:01)
[2021-10-17] MEDS: FLUCONAZOLE INJ 200 MG/100 ML PREMIX IV SCH (12:45)
[2021-10-17] MEDS ORDERED: TUBERCULIN SKIN TEST 0.1 ML SYRINGE INTRADERM ONE (15:31)
[2021-10-17] MEDS: ATORVASTATIN 10 MG TABLET PO SCH (21:55)
[2021-10-18] MEDS: AMPICILLIN INJ 2,000 MG in SODIUM CHLORIDE 0.9% 100 ML IV SCH ×3 (00:35→12:18)
[2021-10-18] MEDS: INSULIN REGULAR 100 UNIT/ML SUBCUT SCH ×5 (00:36→16:01)
[2021-10-18] MEDS: DEXTROSE 5% 1,000 ML IV SCH ×2 (00:37→12:13)
[2021-10-18] MEDS: ALBUTEROL 2.5 MG/3 ML NEB RESP TX SCH ×3 (01:16→12:19)
[2021-10-18 05:00] LABS: Eosinophils % 0.6 % (0.00-10.9); Hematocrit 28.9 VOL% (42.0-52.0); Hemoglobin 8.9 GM/DL (14.0-18.0); Immature Granulocytes % 0.9 %; Immature Granulocytes Absolute 0.06 #; Lymphocytes # 0.4 10*3/uL (1.4-4.0); Lymphocytes % 5.9 % (21.2-54.2); Mean Corpuscular HGB Conc 30.8 GM/DL (32-36); Mean Corpuscular Volume 96.7 FL (87-102); Mean Platelet Volume 10.8 FL (9.6-12.0); Monocytes % 5.6 % (1.7-12.7); NRBC # 0.05 10*3/uL; Platelet Count 177 T/CUMM (130-400); Red Blood Count 2.99 MC/CUMM (3.8-5.5); Red Cell Distribution Width 18.7 % (9.3-17.3); White Blood Count 6.8 T/CUMM (4-12)
[2021-10-18 05:20] LABS: Band Neutrophils 1 % (0-10); Hypochromia 1+; Lymphocytes 6 % (20-55); Microcytosis 1+; Nucleated Red Blood Cells 1 (0-5); Platelet Estimate Adequate; Segmented Neutrophils 89 % (50-85); Total Cells Counted 100
[2021-10-18 05:47] LABS: Calcium 7.7 MG/DL (8.5-10.1); Potassium 3.2 MMOL/L (3.5-5.1)
[2021-10-18] MEDS: LEVOTHYROXINE 75 MCG TABLET PO SCH (05:52)
[2021-10-18] MEDS: LACTULOSE 20 GM/30 ML UDCUP PO SCH ×2 (05:52→11:14)
[2021-10-18] MEDS: cefTRIAXone 2,000 MG in SODIUM CHLORIDE 0.9% 100 ML IV SCH (05:53)
[2021-10-18] MEDS: INSULIN GLARGINE 100 UNIT/ML SUBCUT SCH (08:40)
[2021-10-18] MEDS: CHOLECALCIFEROL 1,000 UNIT TABLET PER TUBE SCH (08:41)
[2021-10-18] MEDS: NYSTATIN CREAM 15 GM TUBE TOP SCH ×2 (08:41→15:50)
[2021-10-18] MEDS: FUROSEMIDE 20 MG/2 ML VIAL IV SCH ×2 (08:41→16:01)
[2021-10-18] MEDS: OMEPRAZOLE ODT 20 MG TABLET NG SCH (08:41)
[2021-10-18] MEDS: SKIN HEALING OINT (AQUAPHOR) 50 GM TUBE TOP SCH (09:02)
[2021-10-18] MEDS: DOXAZOSIN 1 MG TABLET PO SCH (09:02)
[2021-10-18] MEDS: FLUCONAZOLE INJ 200 MG/100 ML PREMIX IV SCH (11:13)
[2021-10-18 16:05] VITALS: BP 150/65
== END 2021-10-18 16:32 | DRG 70 ==
LOC: N.EDINP 13:01 → N.ED 13:01 → SUATTDRO 17:06 → N.TELEN 10-02 00:05 → SUATTDRO 10-02 08:01
PROVIDERS: ADMIT Internal Medicine; ATTEND Internal Medicine

== ENCOUNTER 2021-12-26 13:42 | Inpatient (IN) ==
[2021-12-26 16:13] LABS: Basophils % 0.2 % (0.0-0.8); Eosinophils % 0.3 % (0.00-10.9); Hematocrit 26.3 VOL% (42.0-52.0); Hemoglobin 7.6 GM/DL (14.0-18.0); Immature Granulocytes % 2.3 %; Immature Granulocytes Absolute 0.23 #; Lymphocytes # 0.5 10*3/uL (1.4-4.0); Lymphocytes % 5.2 % (21.2-54.2); Mean Corpuscular HGB Conc 28.9 GM/DL (32-36); Mean Corpuscular Volume 96.7 FL (87-102); Mean Platelet Volume 9.9 FL (9.6-12.0); Monocytes % 6.5 % (1.7-12.7); NRBC # 0.17 10*3/uL; Neutrophils % 85.5 % (38.7-73.9); Platelet Count 488 T/CUMM (130-400); Red Blood Count 2.72 MC/CUMM (3.8-5.5); Red Cell Distribution Width 18.3 % (9.3-17.3); White Blood Count 9.9 T/CUMM (4-12)
[2021-12-26 16:33] LABS: Albumin 1.6 G/DL (3.4-5.0); Bilirubin,Total 0.4 MG/DL (0.20-1.00); Calcium 8.4 MG/DL (8.5-10.1); Osmolality,Calculated 311.9 MOS/KG (273-304); Potassium 4.1 MMOL/L (3.5-5.1); Total Protein 5.6 G/DL (6.4-8.2)
[2021-12-26] MEDS ORDERED: SODIUM CHLORIDE 0.9% 1,000 ML IV STA (16:42)
[2021-12-26 17:31] LABS: Anisocytosis 2+; Hypochromia 2+; Platelet Estimate Increased
[2021-12-26 17:57] LABS: ABG Base Excess 9.6 MMOL/L (-2.5-2.5); ABG HCO3 33.3 MMOL/L (20-26); ABG Oxygen Saturation 94.4 % (95-100); ABG PCO2 52.9 MM HG (35-48); ABG PH 7.432 (7.35-7.45); ABG PO2 73.1 MM HG (80-95)
[2021-12-26] MEDS ORDERED: ALBUTEROL/IPRATROPIUM 3 ML NEB RESP TX STA (19:00)
[2021-12-26] MEDS ORDERED: LORazepam 2 MG/1 ML VIAL IV STA (19:06)
[2021-12-26] MEDS ORDERED: NICOTINE 21 MG/24 HR PATCH TRANSDERM PRN (21:17)
[2021-12-26] MEDS ORDERED: GLUCAGON 1 MG VIAL IM PRN ×2 (21:17)
[2021-12-26] MEDS ORDERED: DEXTROSE 50% 25 GM/50 ML VIAL IV PRN (21:17)
[2021-12-26] MEDS ORDERED: hydrALAZINE 20 MG/1 ML VIAL IV PRN (21:17)
[2021-12-26] MEDS ORDERED: ONDANSETRON 4 MG/2 ML VIAL IV PRN (21:17)
[2021-12-26] MEDS ORDERED: guaiFENesin/DM ER 600-30 MG TABLET PO PRN (21:17)
[2021-12-26] MEDS ORDERED: ACETAMINOPHEN 325 MG TABLET PO PRN (21:17)
[2021-12-26] MEDS ORDERED: diphenhydrAMINE CAP 25 MG CAPSULE PO PRN (21:17)
[2021-12-26] MEDS ORDERED: ZALEPLON 5 MG CAPSULE PO PRN (21:17)
[2021-12-26] MEDS ORDERED: BISACODYL 5 MG TABLET PO PRN (21:17)
[2021-12-26] MEDS: PIPERACILLIN/TAZOBACTAM 3,375 MG in SODIUM CHLORIDE 0.9% 100 ML IV SCH (23:21)
[2021-12-27 01:28] LABS: Basophils % 0.2 % (0.0-0.8); Eosinophils % 0.1 % (0.00-10.9); Hematocrit 25.8 VOL% (42.0-52.0); Hemoglobin 7.4 GM/DL (14.0-18.0); Immature Granulocytes % 1.7 %; Immature Granulocytes Absolute 0.15 #; Lymphocytes # 0.5 10*3/uL (1.4-4.0); Lymphocytes % 5.6 % (21.2-54.2); Mean Corpuscular HGB Conc 28.7 GM/DL (32-36); Mean Corpuscular Volume 96.6 FL (87-102); Mean Platelet Volume 9.9 FL (9.6-12.0); Monocytes % 6.7 % (1.7-12.7); NRBC # 0.13 10*3/uL; Neutrophils % 85.7 % (38.7-73.9); Platelet Count 447 T/CUMM (130-400); Red Blood Count 2.67 MC/CUMM (3.8-5.5); Red Cell Distribution Width 18.4 % (9.3-17.3); White Blood Count 8.6 T/CUMM (4-12)
[2021-12-27 02:03] LABS: Calcium 8.4 MG/DL (8.5-10.1); Osmolality,Calculated 308.9 MOS/KG (273-304); Potassium 3.8 MMOL/L (3.5-5.1); Thyroid Stimulating Hormone 1.93 uIU/ml (0.358-3.74)
[2021-12-27] MEDS: ALBUTEROL/IPRATROPIUM 3 ML NEB RESP TX SCH ×4 (02:06→19:41)
[2021-12-27 02:07] LABS: Lymphocytes 5 % (20-55); Nucleated Red Blood Cells 1 (0-5); Platelet Estimate Increased; Segmented Neutrophils 93 % (50-85); Total Cells Counted 100
[2021-12-27 02:08] LABS: Anisocytosis 1+; Hypochromia 1+; Target Cells 1+
[2021-12-27] MEDS: DEXTROSE 10% 250 ML BAG IV PRN ×2 (02:28→15:59)
[2021-12-27] MEDS ORDERED: VANCOMYCIN INJ 1,500 MG in SODIUM CHLORIDE 0.9% 500 ML IV SCH (04:00)
[2021-12-27 07:30] LABS: ABG Base Excess 8.5 MMOL/L (-2.5-2.5); ABG HCO3 32.3 MMOL/L (20-26); ABG Oxygen Saturation 98.4 % (95-100); ABG PCO2 56.5 MM HG (35-48); ABG PH 7.396 (7.35-7.45); ABG TCO2 32.7 MMOL/L (23-27)
[2021-12-27] MEDS ORDERED: FUROSEMIDE 40 MG/4 ML VIAL IV SCH (08:00)
[2021-12-27] MEDS: PIPERACILLIN/TAZOBACTAM 3,375 MG in SODIUM CHLORIDE 0.9% 100 ML IV SCH ×2 (10:38→18:23)
[2021-12-27] MEDS: PANTOPRAZOLE 40 MG TABLET PO SCH (10:39)
[2021-12-27] MEDS: HEPARIN 5,000 UNIT/1 ML VIAL SUBCUT SCH ×2 (10:40→20:17)
[2021-12-27] MEDS: INSULIN LISPRO 100 UNIT/ML SUBCUT SCH ×3 (15:21→20:17)
[2021-12-27] MEDS: DEXTROSE 5% 1,000 ML IV SCH (15:31)
[2021-12-28] MEDS: ALBUTEROL/IPRATROPIUM 3 ML NEB RESP TX SCH ×4 (00:25→19:25)
[2021-12-28] MEDS: PIPERACILLIN/TAZOBACTAM 3,375 MG in SODIUM CHLORIDE 0.9% 100 ML IV SCH ×3 (02:25→18:37)
[2021-12-28] MEDS: DEXTROSE 5% 1,000 ML IV SCH ×2 (04:28→11:01)
[2021-12-28 05:18] LABS: Osmolality,Calculated 315.7 MOS/KG (273-304); Potassium 3.9 MMOL/L (3.5-5.1)
[2021-12-28] MEDS: HEPARIN 5,000 UNIT/1 ML VIAL SUBCUT SCH ×2 (11:00→20:28)
[2021-12-28] MEDS: PANTOPRAZOLE 40 MG TABLET PO SCH (11:00)
[2021-12-28] MEDS: INSULIN LISPRO 100 UNIT/ML SUBCUT SCH ×3 (15:21→20:28)
[2021-12-29] MEDS: ALBUTEROL/IPRATROPIUM 3 ML NEB RESP TX SCH ×4 (00:36→19:40)
[2021-12-29] MEDS: PIPERACILLIN/TAZOBACTAM 3,375 MG in SODIUM CHLORIDE 0.9% 100 ML IV SCH ×3 (02:09→18:30)
[2021-12-29] MEDS: DEXTROSE 5% 1,000 ML IV SCH (04:34)
[2021-12-29 05:20] LABS: Hematocrit 22.2 VOL% (42.0-52.0); Hemoglobin 6.5 GM/DL (14.0-18.0); Mean Corpuscular Volume 95.7 FL (87-102); Red Blood Count 2.32 MC/CUMM (3.8-5.5); White Blood Count 10.1 T/CUMM (4-12)
[2021-12-29 05:21] LABS: Basophils % 0.1 % (0.0-0.8); Eosinophils % 0.1 % (0.00-10.9); Immature Granulocytes % 1.5 %; Immature Granulocytes Absolute 0.15 #; Lymphocytes # 0.5 10*3/uL (1.4-4.0); Lymphocytes % 4.5 % (21.2-54.2); Mean Corpuscular HGB Conc 29.3 GM/DL (32-36); Mean Platelet Volume 9.6 FL (9.6-12.0); Monocytes % 7.9 % (1.7-12.7); NRBC # 0.11 10*3/uL; Neutrophils % 85.9 % (38.7-73.9); Platelet Count 432 T/CUMM (130-400); Red Cell Distribution Width 18.7 % (9.3-17.3)
[2021-12-29 05:36] LABS: Calcium 7.7 MG/DL (8.5-10.1); Osmolality,Calculated 323.7 MOS/KG (273-304); Potassium 3.9 MMOL/L (3.5-5.1)
[2021-12-29 05:59] LABS: Anisocytosis 1+; Band Neutrophils 11 % (0-10); Lymphocytes 4 % (20-55); Macrocytosis Slight; Metamyelocytes 1 %; Myelocytes 1 %; Nucleated Red Blood Cells 3 (0-5); Platelet Estimate Normal; Segmented Neutrophils 78 % (50-85); Tear Drop Cells Few; Total Cells Counted 100
[2021-12-29] MEDS ORDERED: SODIUM CHLORIDE 0.9% 1,000 ML IV PRN (06:30)
[2021-12-29] MEDS ORDERED: FUROSEMIDE 20 MG/2 ML VIAL IV ONE (08:32)
[2021-12-29] MEDS: INSULIN LISPRO 100 UNIT/ML SUBCUT SCH ×4 (09:04→21:01)
[2021-12-29] MEDS: HEPARIN 5,000 UNIT/1 ML VIAL SUBCUT SCH ×2 (09:05→21:01)
[2021-12-29] MEDS: PANTOPRAZOLE 40 MG TABLET PO SCH ×2 (09:05→09:07)
[2021-12-29 19:23] LABS: Hematocrit 28.5 VOL% (42.0-52.0); Hemoglobin 8.5 GM/DL (14.0-18.0)
[2021-12-30] MEDS: PIPERACILLIN/TAZOBACTAM 3,375 MG in SODIUM CHLORIDE 0.9% 100 ML IV SCH ×3 (02:50→18:17)
[2021-12-30] MEDS: PANTOPRAZOLE 40 MG TABLET PO SCH (09:29)
[2021-12-30] MEDS: INSULIN LISPRO 100 UNIT/ML SUBCUT SCH ×4 (09:30→20:41)
[2021-12-30] MEDS: HEPARIN 5,000 UNIT/1 ML VIAL SUBCUT SCH ×2 (09:30→20:41)
[2021-12-30 11:11] LABS: Basophils % 0.2 % (0.0-0.8); Eosinophils # 0.1 10*3/uL (0.0-0.87); Eosinophils % 0.5 % (0.00-10.9); Hematocrit 29.3 VOL% (42.0-52.0); Hemoglobin 8.9 GM/DL (14.0-18.0); Immature Granulocytes % 4.5 %; Immature Granulocytes Absolute 0.44 #; Lymphocytes # 0.5 10*3/uL (1.4-4.0); Lymphocytes % 5.3 % (21.2-54.2); Mean Corpuscular HGB Conc 30.4 GM/DL (32-36); Mean Corpuscular Volume 93.3 FL (87-102); Mean Platelet Volume 10.3 FL (9.6-12.0); Monocytes % 6.3 % (1.7-12.7); NRBC # 0.07 10*3/uL; Neutrophils % 83.2 % (38.7-73.9); Platelet Count 303 T/CUMM (130-400); Red Blood Count 3.14 MC/CUMM (3.8-5.5); Red Cell Distribution Width 18.2 % (9.3-17.3); White Blood Count 9.8 T/CUMM (4-12)
[2021-12-30 11:43] LABS: Calcium 8.3 MG/DL (8.5-10.1); Osmolality,Calculated 307.8 MOS/KG (273-304); Potassium 4.2 MMOL/L (3.5-5.1)
[2021-12-30] MEDS: ALBUTEROL/IPRATROPIUM 3 ML NEB RESP TX SCH ×2 (13:40→19:26)
[2021-12-31] MEDS: ALBUTEROL/IPRATROPIUM 3 ML NEB RESP TX SCH ×4 (01:40→19:27)
[2021-12-31] MEDS: PIPERACILLIN/TAZOBACTAM 3,375 MG in SODIUM CHLORIDE 0.9% 100 ML IV SCH ×3 (02:13→18:16)
[2021-12-31 05:09] LABS: Basophils % 0.4 % (0.0-0.8); Eosinophils # 0.1 10*3/uL (0.0-0.87); Eosinophils % 0.6 % (0.00-10.9); Hematocrit 30.2 VOL% (42.0-52.0); Hemoglobin 9.3 GM/DL (14.0-18.0); Immature Granulocytes % 3.4 %; Immature Granulocytes Absolute 0.34 #; Lymphocytes # 0.6 10*3/uL (1.4-4.0); Mean Corpuscular HGB Conc 30.8 GM/DL (32-36); Mean Corpuscular Volume 91.8 FL (87-102); Mean Platelet Volume 9.5 FL (9.6-12.0); Monocytes % 6.3 % (1.7-12.7); NRBC # 0.12 10*3/uL; Neutrophils % 83.3 % (38.7-73.9); Platelet Count 433 T/CUMM (130-400); Red Blood Count 3.29 MC/CUMM (3.8-5.5); Red Cell Distribution Width 17.7 % (9.3-17.3); White Blood Count 10.1 T/CUMM (4-12)
[2021-12-31 05:24] LABS: Calcium 8.3 MG/DL (8.5-10.1); Osmolality,Calculated 307.7 MOS/KG (273-304); Potassium 4.1 MMOL/L (3.5-5.1)
[2021-12-31] MEDS: INSULIN LISPRO 100 UNIT/ML SUBCUT SCH ×4 (09:02→21:20)
[2021-12-31] MEDS: HEPARIN 5,000 UNIT/1 ML VIAL SUBCUT SCH ×2 (09:03→21:21)
[2021-12-31] MEDS: PANTOPRAZOLE 40 MG TABLET PO SCH (09:03)
[2021-12-31] MEDS ORDERED: INSULIN GLARGINE 100 UNIT/ML SUBCUT SCH (21:00)
[2022-01-01] MEDS: ALBUTEROL/IPRATROPIUM 3 ML NEB RESP TX SCH ×4 (00:47→19:24)
[2022-01-01] MEDS: PIPERACILLIN/TAZOBACTAM 3,375 MG in SODIUM CHLORIDE 0.9% 100 ML IV SCH ×3 (02:06→23:00)
[2022-01-01] MEDS: LEVOTHYROXINE 75 MCG TABLET PEG SCH (05:06)
[2022-01-01] MEDS: HEPARIN 5,000 UNIT/1 ML VIAL SUBCUT SCH ×2 (09:57→21:59)
[2022-01-01] MEDS: PANTOPRAZOLE 40 MG TABLET PO SCH (09:57)
[2022-01-01] MEDS: INSULIN LISPRO 100 UNIT/ML SUBCUT SCH ×4 (09:57→23:00)
[2022-01-01] MEDS ORDERED: INSULIN GLARGINE 100 UNIT/ML SUBCUT SCH (21:00)
[2022-01-02] MEDS: ALBUTEROL/IPRATROPIUM 3 ML NEB RESP TX SCH ×2 (00:22→07:10)
[2022-01-02] MEDS: PIPERACILLIN/TAZOBACTAM 3,375 MG in SODIUM CHLORIDE 0.9% 100 ML IV SCH ×2 (03:14→12:39)
[2022-01-02 05:08] LABS: Basophils % 0.3 % (0.0-0.8); Eosinophils # 0.1 10*3/uL (0.0-0.87); Eosinophils % 1.4 % (0.00-10.9); Hematocrit 29.4 VOL% (42.0-52.0); Immature Granulocytes % 2.2 %; Lymphocytes # 0.6 10*3/uL (1.4-4.0); Lymphocytes % 6.1 % (21.2-54.2); Mean Corpuscular HGB Conc 30.6 GM/DL (32-36); Mean Corpuscular Volume 92.7 FL (87-102); Mean Platelet Volume 9.1 FL (9.6-12.0); Monocytes % 7.6 % (1.7-12.7); NRBC # 0.15 10*3/uL; Neutrophils % 82.4 % (38.7-73.9); Platelet Count 355 T/CUMM (130-400); Red Blood Count 3.17 MC/CUMM (3.8-5.5); Red Cell Distribution Width 17.5 % (9.3-17.3); White Blood Count 9.2 T/CUMM (4-12)
[2022-01-02 05:35] LABS: Albumin 1.4 G/DL (3.4-5.0); Anisocytosis 1+; Band Neutrophils 1 % (0-10); Bilirubin,Total 0.4 MG/DL (0.20-1.00); Calcium 8.4 MG/DL (8.5-10.1); Hypochromia 1+; Lymphocytes 4 % (20-55); Microcytosis 1+; Nucleated Red Blood Cells 1 (0-5); Ovalocytes Slight; Polychromasia Slight; Segmented Neutrophils 88 % (50-85); Total Cells Counted 100; Total Protein 6.2 G/DL (6.4-8.2)
[2022-01-02 05:41] LABS: Osmolality,Calculated 283.7 MOS/KG (273-304)
[2022-01-02] MEDS: LEVOTHYROXINE 75 MCG TABLET PEG SCH (06:39)
[2022-01-02 08:26] VITALS: BP 164/79
[2022-01-02] MEDS: PANTOPRAZOLE 40 MG TABLET PO SCH (10:08)
[2022-01-02] MEDS: HEPARIN 5,000 UNIT/1 ML VIAL SUBCUT SCH (10:08)
[2022-01-02] MEDS: INSULIN LISPRO 100 UNIT/ML SUBCUT SCH ×2 (10:08→12:39)
== END 2022-01-02 12:34 | DRG 193 ==
LOC: EDBD → EDUNIT# → N.ED 13:42 → N.EDINP 21:17 → N.TELEN 12-27 00:24
PROVIDERS: ADMIT Internal Medicine; ATTEND Internal Medicine

== ENCOUNTER 2022-02-08 08:52 | Inpatient (IN) ==
[2022-02-08 10:35] LABS: Albumin 2.9 G/DL (3.4-5.0); Bilirubin,Total 0.9 MG/DL (0.20-1.00); Calcium 9.3 MG/DL (8.5-10.1); Osmolality,Calculated 292.5 MOS/KG (273-304); Total Protein 7.2 G/DL (6.4-8.2)
[2022-02-08] MEDS ORDERED: SODIUM BICARBONATE 50 MEQ/50 ML VIAL IV STA (10:45)
[2022-02-08] MEDS ORDERED: INSULIN REGULAR 100 UNIT/ML IV ONE (10:45)
[2022-02-08] MEDS ORDERED: DEXTROSE 50% 25 GM/50 ML VIAL IV STA (10:46)
[2022-02-08] MEDS ORDERED: DEXTROSE 50% 25 GM/50 ML SYRINGE IV ONE (10:53)
[2022-02-08 10:54] LABS: RBC,Urine 2 /HPF (0-4)
[2022-02-08] MEDS ORDERED: PIPERACILLIN/TAZOBACTAM 3,375 MG in SODIUM CHLORIDE 0.9% 100 ML IV STA ×2 (10:54→11:15)
[2022-02-08 10:55] LABS: Bilirubin,Urine Negative (Negative); Blood, Urine Negative (Negative); Glucose,Urine (UA) Negative (Negative); Ketones,Urine Negative (Negative); Nitrite,Urine Negative (Negative); Protein,Urine 100 mg/dL (Negative); Urine Appearance Clear (Clear); Urine Color Yellow (Yellow); Urine Urobilinogen 0.2 eU/dL (<2.0); Urine pH 8.5 (4.5-8.0)
[2022-02-08] MEDS ORDERED: LACTATED RINGERS 1,000 ML IV ONE (11:09)
[2022-02-08 11:35] LABS: Basophils % 0.1 % (0.0-0.8); Eosinophils # 0.1 10*3/uL (0.0-0.87); Eosinophils % 0.7 % (0.00-10.9); Hematocrit 30.2 VOL% (42.0-52.0); Hemoglobin 9.2 GM/DL (14.0-18.0); Immature Granulocytes % 0.6 %; Immature Granulocytes Absolute 0.04 #; Lymphocytes # 0.3 10*3/uL (1.4-4.0); Mean Corpuscular HGB Conc 30.5 GM/DL (32-36); Mean Corpuscular Volume 97.1 FL (87-102); Mean Platelet Volume 9.6 FL (9.6-12.0); Monocytes # 0.7 10*3/uL (0.11-0.8); Monocytes % 9.8 % (1.7-12.7); NRBC # 0.08 10*3/uL; Neutrophils % 83.8 % (38.7-73.9); Platelet Count 202 T/CUMM (130-400); Red Blood Count 3.11 MC/CUMM (3.8-5.5); Red Cell Distribution Width 21.7 % (9.3-17.3); White Blood Count 6.7 T/CUMM (4-12)
[2022-02-08] MEDS ORDERED: ACETAMINOPHEN 325 MG TABLET PO PRN (12:19)
[2022-02-08] MEDS ORDERED: GLUCAGON 1 MG VIAL IM PRN (12:19)
[2022-02-08] MEDS ORDERED: ONDANSETRON 4 MG/2 ML VIAL IV PRN (12:19)
[2022-02-08] MEDS ORDERED: DEXTROSE 10% 250 ML BAG IV PRN (12:28)
[2022-02-08] MEDS ORDERED: ALBUTEROL 2.5 MG/3 ML NEB RESP TX PRN (15:00)
[2022-02-08] MEDS: DOCUSATE SODIUM 100 MG CAPSULE PO SCH (22:41)
[2022-02-08] MEDS: PIPERACILLIN/TAZOBACTAM 3,375 MG in SODIUM CHLORIDE 0.9% 100 ML IV SCH (22:41)
[2022-02-09] MEDS ORDERED: BISACODYL 5 MG TABLET PO PRN (00:26)
[2022-02-09] MEDS: ALBUTEROL/IPRATROPIUM 3 ML NEB RESP TX SCH ×4 (01:33→19:55)
[2022-02-09] MEDS: PIPERACILLIN/TAZOBACTAM 3,375 MG in SODIUM CHLORIDE 0.9% 100 ML IV SCH ×3 (03:38→21:50)
[2022-02-09] MEDS: methylPREDNISolone SOD SUC 40 MG/1 ML VIAL IV SCH ×2 (03:38→17:05)
[2022-02-09] MEDS: LEVOTHYROXINE 75 MCG TABLET PEG SCH (05:45)
[2022-02-09 06:40] LABS: Albumin 2.6 G/DL (3.4-5.0); Bilirubin,Total 1.1 MG/DL (0.20-1.00); Calcium 8.7 MG/DL (8.5-10.1); Osmolality,Calculated 287.8 MOS/KG (273-304); Total Protein 6.6 G/DL (6.4-8.2)
[2022-02-09 06:42] LABS: Potassium 6.3 MMOL/L (3.5-5.1)
[2022-02-09] MEDS ORDERED: SODIUM POLYSTYRENE SULFATE 15 GM/60 ML BOTTLE PO ONE (07:00)
[2022-02-09 08:16] LABS: Basophils % 0.1 % (0.0-0.8); Hematocrit 31.4 VOL% (42.0-52.0); Hemoglobin 9.9 GM/DL (14.0-18.0); Immature Granulocytes % 0.5 %; Immature Granulocytes Absolute 0.05 #; Lymphocytes # 0.2 10*3/uL (1.4-4.0); Lymphocytes % 2.4 % (21.2-54.2); Mean Corpuscular HGB Conc 31.5 GM/DL (32-36); Mean Platelet Volume 10.3 FL (9.6-12.0); Monocytes # 0.2 10*3/uL (0.11-0.8); Monocytes % 2.3 % (1.7-12.7); NRBC # 0.07 10*3/uL; Neutrophils % 94.7 % (38.7-73.9); Platelet Count 204 T/CUMM (130-400); Red Blood Count 3.27 MC/CUMM (3.8-5.5); White Blood Count 9.2 T/CUMM (4-12)
[2022-02-09 08:37] LABS: Hypochromia 1+; Lymphocytes 2 % (20-55); Microcytosis 1+; Platelet Estimate Adequate; Total Cells Counted 100
[2022-02-09] MEDS: DOCUSATE SODIUM 100 MG CAPSULE PO SCH ×2 (09:40→21:59)
[2022-02-09] MEDS: SKIN HEALING OINT (AQUAPHOR) 50 GM TUBE TOP SCH (09:40)
[2022-02-09] MEDS: CETIRIZINE 10 MG TABLET PO SCH (09:40)
[2022-02-09] MEDS: ASPIRIN EC 81 MG TABLET PO SCH (09:40)
[2022-02-09] MEDS: DOXAZOSIN 1 MG TABLET PO SCH (09:40)
[2022-02-09] MEDS: PANTOPRAZOLE 40 MG TABLET PO SCH (09:41)
[2022-02-09] MEDS: [UNRECOGNIZED DRUG - REMARK] IRRIG SCH (09:42)
[2022-02-09] MEDS: FAMOTIDINE 20 MG TABLET PEG SCH ×2 (09:47→21:59)
[2022-02-09] MEDS: COLLAGENASE OINT 30 GM TUBE TOP SCH (10:33)
[2022-02-09] MEDS: DESITIN 4OZ/NYSTATIN 15 GRAM MIXTURE PASTE TOP SCH ×2 (10:33→22:04)
[2022-02-09 13:37] LABS: Calcium 8.5 MG/DL (8.5-10.1)
[2022-02-09 13:41] LABS: Potassium 6.5 MMOL/L (3.5-5.1)
[2022-02-09] MEDS ORDERED: SODIUM ZIRCONIUM CYCLOSILICATE 10 GM PACK PO ONE (13:57)
[2022-02-09] MEDS: MENTHOL/ZINC OXIDE OINT 71 GM JAR TOP SCH ×2 (14:33→22:05)
[2022-02-09] MEDS: ATORVASTATIN 10 MG TABLET PEG SCH (21:59)
[2022-02-09] MEDS: QUEtiapine 25 MG TABLET PEG SCH (22:00)
[2022-02-09] MEDS: MEMANTINE 10 MG TABLET PER TUBE SCH (22:00)
[2022-02-09] MEDS ORDERED: DEXTROSE 50% 25 GM/50 ML VIAL IV PRN (22:42)
[2022-02-09] MEDS ORDERED: GLUCAGON 1 MG VIAL IM PRN (22:42)
[2022-02-09] MEDS ORDERED: INSULIN LISPRO 100 UNIT/ML SUBCUT ONE (22:43)
[2022-02-10] MEDS: INSULIN LISPRO 100 UNIT/ML SUBCUT SCH ×4 (01:02→18:26)
[2022-02-10] MEDS: methylPREDNISolone SOD SUC 40 MG/1 ML VIAL IV SCH ×2 (01:03→12:34)
[2022-02-10] MEDS: ALBUTEROL/IPRATROPIUM 3 ML NEB RESP TX SCH ×4 (01:56→20:05)
[2022-02-10] MEDS: PIPERACILLIN/TAZOBACTAM 3,375 MG in SODIUM CHLORIDE 0.9% 100 ML IV SCH ×3 (04:19→21:14)
[2022-02-10 05:48] LABS: Calcium 8.7 MG/DL (8.5-10.1); Potassium 5.1 MMOL/L (3.5-5.1)
[2022-02-10 05:49] LABS: Basophils % 0.1 % (0.0-0.8); Hematocrit 24.7 VOL% (42.0-52.0); Immature Granulocytes % 0.7 %; Immature Granulocytes Absolute 0.05 #; Lymphocytes # 0.2 10*3/uL (1.4-4.0); Lymphocytes % 2.8 % (21.2-54.2); Mean Corpuscular HGB Conc 31.6 GM/DL (32-36); Mean Corpuscular Volume 95.7 FL (87-102); Mean Platelet Volume 10.3 FL (9.6-12.0); Monocytes # 0.4 10*3/uL (0.11-0.8); Monocytes % 5.1 % (1.7-12.7); NRBC # 0.05 10*3/uL; Neutrophils % 91.3 % (38.7-73.9); Red Cell Distribution Width 21.2 % (9.3-17.3); White Blood Count 7.6 T/CUMM (4-12)
[2022-02-10 05:57] LABS: Hemoglobin 7.8 GM/DL (14.0-18.0); Platelet Count 162 T/CUMM (130-400); Red Blood Count 2.58 MC/CUMM (3.8-5.5)
[2022-02-10 06:11] LABS: Lymphocytes 3 % (20-55); Nucleated Red Blood Cells 1 (0-5); Platelet Estimate Normal; Total Cells Counted 100
[2022-02-10 06:12] LABS: Hypochromia Slight
[2022-02-10] MEDS: LEVOTHYROXINE 75 MCG TABLET PEG SCH (06:40)
[2022-02-10] MEDS: traMADol 50 MG TABLET PEG PRN (10:03)
[2022-02-10] MEDS: ASPIRIN EC 81 MG TABLET PO SCH (10:04)
[2022-02-10] MEDS: DOXAZOSIN 1 MG TABLET PO SCH (10:04)
[2022-02-10] MEDS: PANTOPRAZOLE 40 MG TABLET PO SCH (10:05)
[2022-02-10] MEDS: FAMOTIDINE 20 MG TABLET PEG SCH ×2 (10:05→21:15)
[2022-02-10] MEDS: DOCUSATE SODIUM 100 MG/10 ML UDCUP PEG PRN ×2 (10:05→21:13)
[2022-02-10] MEDS: CETIRIZINE 10 MG TABLET PO SCH (10:05)
[2022-02-10] MEDS: DOCUSATE SODIUM 100 MG CAPSULE PO SCH ×2 (10:05→21:10)
[2022-02-10] MEDS: DESITIN 4OZ/NYSTATIN 15 GRAM MIXTURE PASTE TOP SCH ×2 (10:06→21:16)
[2022-02-10] MEDS: [UNRECOGNIZED DRUG - REMARK] IRRIG SCH (10:06)
[2022-02-10] MEDS: COLLAGENASE OINT 30 GM TUBE TOP SCH (10:06)
[2022-02-10] MEDS: SKIN HEALING OINT (AQUAPHOR) 50 GM TUBE TOP SCH (11:07)
[2022-02-10] MEDS: FLUCONAZOLE 40 MG/ML 35 ML/BOTTLE PO SCH (11:08)
[2022-02-10] MEDS: MENTHOL/ZINC OXIDE OINT 71 GM JAR TOP SCH ×2 (11:08→21:16)
[2022-02-10] MEDS: ATORVASTATIN 10 MG TABLET PEG SCH (21:15)
[2022-02-10] MEDS: QUEtiapine 25 MG TABLET PEG SCH (21:15)
[2022-02-10] MEDS: MEMANTINE 10 MG TABLET PER TUBE SCH (21:15)
[2022-02-11] MEDS: ALBUTEROL/IPRATROPIUM 3 ML NEB RESP TX SCH ×4 (00:30→19:46)
[2022-02-11] MEDS: methylPREDNISolone SOD SUC 40 MG/1 ML VIAL IV SCH ×2 (00:44→12:44)
[2022-02-11] MEDS: INSULIN LISPRO 100 UNIT/ML SUBCUT SCH ×4 (00:45→18:25)
[2022-02-11] MEDS: PIPERACILLIN/TAZOBACTAM 3,375 MG in SODIUM CHLORIDE 0.9% 100 ML IV SCH ×3 (04:38→20:33)
[2022-02-11 04:58] LABS: Basophils % 0.1 % (0.0-0.8); Eosinophils % 0.4 % (0.00-10.9); Hematocrit 25.3 VOL% (42.0-52.0); Hemoglobin 7.9 GM/DL (14.0-18.0); Immature Granulocytes % 0.5 %; Immature Granulocytes Absolute 0.04 #; Lymphocytes # 0.4 10*3/uL (1.4-4.0); Lymphocytes % 4.6 % (21.2-54.2); Mean Corpuscular HGB Conc 31.2 GM/DL (32-36); Mean Corpuscular Volume 96.2 FL (87-102); Mean Platelet Volume 10.4 FL (9.6-12.0); Monocytes # 0.5 10*3/uL (0.11-0.8); Monocytes % 6.7 % (1.7-12.7); NRBC # 0.02 10*3/uL; Neutrophils % 87.7 % (38.7-73.9); Platelet Count 151 T/CUMM (130-400); Red Blood Count 2.63 MC/CUMM (3.8-5.5); Red Cell Distribution Width 21.1 % (9.3-17.3); White Blood Count 7.6 T/CUMM (4-12)
[2022-02-11 05:19] LABS: Calcium 8.2 MG/DL (8.5-10.1); Osmolality,Calculated 299.5 MOS/KG (273-304); Potassium 4.1 MMOL/L (3.5-5.1)
[2022-02-11 05:24] LABS: Lymphocytes 4 % (20-55); Nucleated Red Blood Cells 2 (0-5); Total Cells Counted 100
[2022-02-11 05:25] LABS: Anisocytosis 1+; Hypochromia 1+; Microcytosis 1+
[2022-02-11 05:26] LABS: Platelet Estimate Adequate
[2022-02-11] MEDS: LEVOTHYROXINE 75 MCG TABLET PEG SCH (06:09)
[2022-02-11] MEDS: PANTOPRAZOLE 40 MG TABLET PO SCH (10:24)
[2022-02-11] MEDS: ASPIRIN EC 81 MG TABLET PO SCH (10:24)
[2022-02-11] MEDS: DOCUSATE SODIUM 100 MG CAPSULE PO SCH ×2 (10:24→20:35)
[2022-02-11] MEDS: DOXAZOSIN 1 MG TABLET PO SCH (10:24)
[2022-02-11] MEDS: FAMOTIDINE 20 MG TABLET PEG SCH ×2 (10:24→20:39)
[2022-02-11] MEDS: CETIRIZINE 10 MG TABLET PO SCH (10:25)
[2022-02-11] MEDS: COLLAGENASE OINT 30 GM TUBE TOP SCH (10:25)
[2022-02-11] MEDS: DESITIN 4OZ/NYSTATIN 15 GRAM MIXTURE PASTE TOP SCH ×2 (10:25→20:40)
[2022-02-11] MEDS: MENTHOL/ZINC OXIDE OINT 71 GM JAR TOP SCH ×2 (10:25→20:40)
[2022-02-11] MEDS: SKIN HEALING OINT (AQUAPHOR) 50 GM TUBE TOP SCH (10:26)
[2022-02-11] MEDS: [UNRECOGNIZED DRUG - REMARK] IRRIG SCH (10:26)
[2022-02-11] MEDS: FLUCONAZOLE 40 MG/ML 35 ML/BOTTLE PO SCH (10:37)
[2022-02-11] MEDS: INSULIN GLARGINE 100 UNIT/ML SUBCUT SCH (12:44)
[2022-02-11] MEDS: MEMANTINE 10 MG TABLET PER TUBE SCH (20:34)
[2022-02-11] MEDS: ATORVASTATIN 10 MG TABLET PEG SCH (20:34)
[2022-02-11] MEDS: QUEtiapine 25 MG TABLET PEG SCH (20:36)
[2022-02-11] MEDS: DOCUSATE SODIUM 100 MG/10 ML UDCUP PEG PRN (20:36)
[2022-02-12] MEDS: INSULIN LISPRO 100 UNIT/ML SUBCUT SCH ×4 (01:16→18:44)
[2022-02-12] MEDS: methylPREDNISolone SOD SUC 40 MG/1 ML VIAL IV SCH ×2 (01:17→21:50)
[2022-02-12] MEDS: ALBUTEROL/IPRATROPIUM 3 ML NEB RESP TX SCH ×4 (01:24→19:28)
[2022-02-12] MEDS: PIPERACILLIN/TAZOBACTAM 3,375 MG in SODIUM CHLORIDE 0.9% 100 ML IV SCH ×3 (04:27→21:47)
[2022-02-12] MEDS: LEVOTHYROXINE 75 MCG TABLET PEG SCH (05:58)
[2022-02-12] MEDS: ASPIRIN EC 81 MG TABLET PO SCH (09:58)
[2022-02-12] MEDS: COLLAGENASE OINT 30 GM TUBE TOP SCH (09:58)
[2022-02-12] MEDS: SKIN HEALING OINT (AQUAPHOR) 50 GM TUBE TOP SCH (09:58)
[2022-02-12] MEDS: MENTHOL/ZINC OXIDE OINT 71 GM JAR TOP SCH ×2 (09:58→21:49)
[2022-02-12] MEDS: FAMOTIDINE 20 MG TABLET PEG SCH ×2 (09:58→21:48)
[2022-02-12] MEDS: DOXAZOSIN 1 MG TABLET PO SCH (09:59)
[2022-02-12] MEDS: CETIRIZINE 10 MG TABLET PO SCH (09:59)
[2022-02-12] MEDS: PANTOPRAZOLE 40 MG TABLET PO SCH (09:59)
[2022-02-12] MEDS: DOCUSATE SODIUM 100 MG/10 ML UDCUP PEG PRN (09:59)
[2022-02-12] MEDS: FLUCONAZOLE 40 MG/ML 35 ML/BOTTLE PO SCH (09:59)
[2022-02-12] MEDS: DESITIN 4OZ/NYSTATIN 15 GRAM MIXTURE PASTE TOP SCH ×2 (10:00→21:49)
[2022-02-12] MEDS: INSULIN GLARGINE 100 UNIT/ML SUBCUT SCH (12:23)
[2022-02-12] MEDS: traMADol 50 MG TABLET PEG PRN (21:48)
[2022-02-12] MEDS: MEMANTINE 10 MG TABLET PER TUBE SCH (21:48)
[2022-02-12] MEDS: QUEtiapine 25 MG TABLET PEG SCH (21:48)
[2022-02-12] MEDS: ATORVASTATIN 10 MG TABLET PEG SCH (21:49)
[2022-02-13] MEDS: ALBUTEROL/IPRATROPIUM 3 ML NEB RESP TX SCH (00:10)
[2022-02-13] MEDS: INSULIN LISPRO 100 UNIT/ML SUBCUT SCH ×2 (00:37→05:44)
[2022-02-13 04:55] LABS: Basophils % 0.1 % (0.0-0.8); Eosinophils % 0.1 % (0.00-10.9); Hematocrit 27.5 VOL% (42.0-52.0); Hemoglobin 8.6 GM/DL (14.0-18.0); Immature Granulocytes % 0.6 %; Immature Granulocytes Absolute 0.06 #; Lymphocytes # 0.2 10*3/uL (1.4-4.0); Lymphocytes % 1.8 % (21.2-54.2); Mean Corpuscular HGB Conc 31.3 GM/DL (32-36); Mean Corpuscular Volume 96.2 FL (87-102); Mean Platelet Volume 10.2 FL (9.6-12.0); Monocytes # 0.2 10*3/uL (0.11-0.8); Monocytes % 2.3 % (1.7-12.7); NRBC # 0.04 10*3/uL; Neutrophils % 95.1 % (38.7-73.9); Platelet Count 158 T/CUMM (130-400); Red Blood Count 2.86 MC/CUMM (3.8-5.5); Red Cell Distribution Width 21.1 % (9.3-17.3); White Blood Count 9.4 T/CUMM (4-12)
[2022-02-13 05:19] LABS: Albumin 2.5 G/DL (3.4-5.0); Bilirubin,Total 0.5 MG/DL (0.20-1.00); Calcium 8.7 MG/DL (8.5-10.1); Osmolality,Calculated 299.4 MOS/KG (273-304); Potassium 4.8 MMOL/L (3.5-5.1); Total Protein 6.6 G/DL (6.4-8.2)
[2022-02-13] MEDS: LEVOTHYROXINE 75 MCG TABLET PEG SCH (05:22)
[2022-02-13] MEDS: PIPERACILLIN/TAZOBACTAM 3,375 MG in SODIUM CHLORIDE 0.9% 100 ML IV SCH (05:23)
[2022-02-13 05:37] LABS: Hypochromia 1+; Lymphocytes 3 % (20-55); Microcytosis 1+; Platelet Estimate Adequate; Total Cells Counted 100
[2022-02-13 08:20] VITALS: BP 164/72
== END 2022-02-13 10:33 | DRG 177 ==
LOC: EDUNIT# → EDBD → N.ED 08:52 → N.EDINP 12:19 → N.5E 16:01
PROVIDERS: ADMIT Internal Medicine; ATTEND Internal Medicine